=== PATIENT | male | born 1950 | race Two or more races ===

== ENCOUNTER 2016-07-24 08:57 | Inpatient (IN) | payer MEDICAID ==
[2016-07-24] MEDS ORDERED: ONDANSETRON HCL INJ/PF 4 MG/2 ML SDV IV ONE (09:50)
--- NOTE | 2016-07-24 10:06 | ER Document Report ---
[id number] Mode of Arrival: Medic Information source: Patient Notes: 66-year-old male presents with complaints of dizziness nausea vomiting. Patient notes symptoms started couple of hours ago, vomited 2 times. Denies any headache abdominal pain or any other concerns at this time. Patient denies any chest pain shortness breath difficulty breathing TRAVEL OUTSIDE OF THE [place] IN LAST 30 DAYS: No - HPI Onset: Just prior to arrival Onset/Duration: Sudden Quality of pain: No pain Severity: Mild Pain Level: Denies Associated symptoms: Nausea, Vomiting, Other Exacerbated by: Denies Relieved by: Denies Similar symptoms previously: No Recently seen / treated by doctor: No - Related Data Allergies/Adverse Reactions: No Known Allergies Allergy (Verified 05/01/15 16:02) Home Medications: Current Home Medications Dutasteride [Avodart] 0.5 mg PO DAILY 07/24/16 [History] Metoprolol Succinate [Toprol Xl 50 mg Tab.sr] 50 mg PO DAILY 07/24/16 [History] Simvastatin [Zocor 40 mg Tablet] 40 mg PO DAILY 07/24/16 [History] Tamsulosin HCl [Flomax] 0.8 mg PO DAILY 07/24/16 [History] Warfarin Sodium [Coumadin 2.5 mg Tablet] 2.5 mg PO MOWEFR@1000 07/24/16 [History ] Warfarin Sodium [Coumadin 3 mg Tablet] 3 mg PO TUTHSA@1000 07/24/16 [History] Past Medical History - Social History Smoking Status: Never Smoker Cigarette use (# per day): No Chew tobacco use (# tins/day): No Smoking Education Provided: No Family History: Reviewed & Not Pertinent, Other - Past Medical History Cardiac Medical History: Reports: Hx Atrial Fibrillation, Hx Hypercholesterolemia, Hx Hypertension Neurological Medical History: Reports: Hx Cerebrovascular Accident Renal/ Medical History: Reports: Hx Benign Prostatic Hyperplasia Surgical Hx: Negative - Immunizations Hx Diphtheria, Pertussis, Tetanus Vaccination: No Review of Systems - Review of Systems Notes: REVIEW OF SYSTEMS: CONSTITUTIONAL : Denies fever, chills, or sweats. Denies recent illness. EENT: Denies eye, ear, throat, or mouth pain or symptoms. Denies nasal or sinus congestion or discharge. Denies throat, tongue, or mouth swelling or difficulty swallowing. CARDIOVASCULAR: Denies chest pain. Denies palpitations or racing or irregular heart beat. Denies ankle edema. RESPIRATORY: Denies cough, cold, or chest congestion. Denies shortness of breath, difficulty breathing, or wheezing. GASTROINTESTINAL: admits to nausea vomiting GENITOURINARY: Denies difficulty urinating, painful urination, burning, frequency, blood in urine, or discharge. MUSCULOSKELETAL: Denies back or neck pain or stiffness. Denies joint pain or swelling. SKIN: Denies rash, lesions or sores. HEMATOLOGIC : Denies easy bruising or bleeding. LYMPHATIC: Denies swollen, enlarged glands. NEUROLOGICAL: Denies confusion or altered mental status. Denies passing out or loss of consciousness. Denies dizziness or lightheadedness. Denies headache. Denies weakness or paralysis or loss of use of either side. Denies problems with gait or speech. Denies sensory loss, numbness, or tingling. Denies seizures. PSYCHIATRIC: Denies anxiety or stress. Denies depression, suicidal ideation, or homicidal ideation. ALL OTHER SYSTEMS REVIEWED AND NEGATIVE. Dictation was performed using [employer] voice recognition software PHYSICAL EXAMINATION: GENERAL: Well-appearing, well-nourished and in no acute distress. HEAD: Atraumatic, normocephalic. EYES: Pupils equal round and reactive to light, extraocular movements intact, sclera anicteric, conjunctiva are normal. ENT: Nares patent, oropharynx clear without exudates. Moist mucous membranes. NECK: Normal range of motion, supple without lymphadenopathy LUNGS: Breath sounds clear to auscultation bilaterally and equal. No wheezes rales or rhonchi. HEART: irregular rate and rythma ABDOMEN: Soft, nontender, nondistended abdomen. No guarding, no rebound. No masses appreciated. Musculoskeletal: Normal range of motion, no pitting or edema. No cyanosis. NEUROLOGICAL: Cranial nerves grossly intact. Normal speech, normal gait. Normal sensory, motor exams patient states that this is [place] but notes that he is in the hospital PSYCH: Normal mood, normal affect. SKIN: Warm, Dry, normal turgor, no rashes or lesions noted. Physical Exam - Vital signs Vitals: Resp 28 H 07/24/16 09:38 Course - Re-evaluation Re-evalutation: 07/24/16 10:06 Patient will be sent for CT head and immediately 07/24/16 16:18 ct head notes previous cva, cta chest was negative, pt does become hypoxic intermittently, will admit for confusion. - Vital Signs Vital signs: Temp Pulse Resp BP Pulse Ox 97.8 F 23 H 130/84 H 94 07/24/16 15:01 07/24/16 15:01 07/24/16 15:01 07/24/16 15:01 - Laboratory Result Diagrams: 07/24/16 10:57 07/24/16 10:57 Laboratory results interpreted by me: 07/24/16 07/24/16 07/24/16 10:57 10:57 10:57 WBC 12.5 H RBC 5.96 H Hgb 17.8 H Hct 53.4 H Seg Neutrophils % 84.7 H Lymphocytes % 8.9 L Absolute Neutrophils 10.6 H PT 23.7 H Sodium 146.3 H Carbon Dioxide 32 H Glucose 113 H Urine Protein Urine Ketones Urine Ascorbic Acid 07/24/16 13:15 WBC RBC Hgb Hct Seg Neutrophils % Lymphocytes % Absolute Neutrophils PT Sodium Carbon Dioxide Glucose Urine Protein 100 H Urine Ketones TRACE H Urine Ascorbic Acid 20 H - Diagnostic Test Radiology reviewed: Image reviewed, Reports reviewed - EKG Interpretation by Me EKG shows normal: Sinus rhythm, [place], Intervals, QRS Complexes When compared to previous EKG there are: Changes noted - Patient noted to have inverted T waves in lead aVL V4 which appear to be new, he does have inverted T waves in 135 and V6 as well which appears to be chronic Discharge - Discharge Clinical Impression: Hypoxemia Altered mental status Qualifiers: Altered mental status type: unspecified Qualified Code(s): R41.82 - Altered mental status, unspecified Condition: Stable Disposition: ADMITTED OBSERVATION Admitting Provider: Hospitalist Unit Admitted: [facility]
--- NOTE | 2016-07-24 11:06 | EKG REPORT ---
SEVERITY:- ABNORMAL ECG - ATRIAL FIBRILLATION, V-RATE 84-114 REPOL ABNRM SUGGESTS ISCHEMIA, DIFFUSE LEADS BORDERLINE PROLONGED QT INTERVAL : Confirmed by: Roselyn Collier 24-Jul-2016 11:06:31
[2016-07-24 11:08] LABS: ABSOLUTE BASOPHILS # (AUTO) 0.1 10^3/uL (0.0-0.2); ABSOLUTE LYMPHOCYTES (AUTO) 1.1 10^3/uL (0.5-4.7); ABSOLUTE MONOCYTES (AUTO) 0.7 10^3/uL (0.1-1.4); ABSOLUTE NEUT (AUTO) 10.6 10^3/uL (1.7-8.2); BASOPHILS % (AUTO) 0.7 % (0-2); EOSINOPHILS % (AUTO) 0.1 % (0-6); HEMATOCRIT 53.4 % (37.9-51.0); HEMOGLOBIN 17.8 g/dL (13.5-17.0); LYMPHOCYTES % (AUTO) 8.9 % (13-45); MEAN CORPUSCULAR HEMOGLOBIN 29.8 pg (27.0-33.4); MEAN CORPUSCULAR HGB CONC 33.3 g/dL (32.0-36.0); MEAN CORPUSCULAR VOLUME 90 fl (80-97); MONOCYTES % (AUTO) 5.6 % (3-13); RED BLOOD COUNT 5.96 10^6/uL (4.35-5.55); RED CELL DISTRIBUTION WIDTH 13.9 % (11.5-14.0); SEGMENTED NEUTROPHILS % (AUTO) 84.7 % (42-78); WHITE BLOOD COUNT 12.5 10^3/uL (4.0-10.5)
[2016-07-24 11:22] LABS: PROTHROMBIN TIME 23.7 SEC (11.4-15.4)
[2016-07-24 11:30] LABS: ALANINE AMINOTRANSFERASE 64 U/L (21-72); ALBUMIN 4.3 g/dL (3.5-5.0); ALKALINE PHOSPHATASE 96 U/L (38-126); ANION GAP 10 (5-19); ASPARTATE AMINO TRANSFERASE 44 U/L (17-59); BILIRUBIN,TOTAL 0.8 mg/dL (0.2-1.3); BLOOD UREA NITROGEN 14 mg/dL (7-20); CARBON DIOXIDE 32 mmol/L (22-30); CHLORIDE 104 mmol/L (98-107); CREATINE KINASE 56 U/L (55-170); CREATININE RESULT 0.68 mg/dL (0.52-1.25); GLUCOSE 113 mg/dL (75-110); POTASSIUM 4.5 mmol/L (3.6-5.0); SODIUM 146.3 mmol/L (137-145); TOTAL PROTEIN 8.2 g/dL (6.3-8.2)
[2016-07-24 11:37] LABS: CREATINE KINASE MB 2.12 ng/mL (<4.55)
[2016-07-24 11:39] LABS: TROPONIN I < 0.012 ng/mL
[2016-07-24 14:20] LABS: APPEARANCE,URINE CLEAR; BILIRUBIN,URINE NEGATIVE (NEGATIVE); GLUCOSE, URINE NEGATIVE (NEGATIVE); KETONES,URINE TRACE mg/dL (NEGATIVE); LEUKOCYTE ESTERASE,URINE NEGATIVE (NEGATIVE); NITRITE,URINE NEGATIVE (NEGATIVE); PROTEIN,URINE 100 mg/dL (NEGATIVE); URINE SPECIFIC GRAVITY 1.046; UROBILINOGEN,URINE NEGATIVE mg/dL (<2.0)
[2016-07-24] MEDS ORDERED: ALBUTEROL SULFATE 0.083% NEB 2.5 MG/3 ML AMPUL NEB PRN (14:23)
[2016-07-24 14:45] LABS: URINE BARBITURATES SCREEN NEGATIVE; URINE METHADONE SCREEN NEGATIVE; URINE OPIATES LOW NEGATIVE; URINE PHENCYCLIDINE SCREEN NEGATIVE
[2016-07-24] MEDS ORDERED: ACETAMINOPHEN 325 MG TABLET PO PRN (14:46)
[2016-07-24] MEDS ORDERED: MAGNESIUM HYDROXIDE SUSP 30 ML UDCUP PO PRN (14:46)
[2016-07-24] MEDS ORDERED: ONDANSETRON HCL INJ/PF 4 MG/2 ML SDV IV PRN (14:46)
[2016-07-24] MEDS ORDERED: NORMAL SALINE 1000 ML 1,000 ML IV ONE (16:15)
[2016-07-24] MEDS ORDERED: AZITHROMYCIN 250 MG TABLET PO ONE (16:30)
[2016-07-24] MEDS ORDERED: METOPROLOL SUCCINATE 50 MG TAB.SR.24H PO ONE (16:30)
[2016-07-24] MEDS ORDERED: INFLUENZA ADLT QUAD (36MOS+) 2016-17 VAC 0.5 ML SYR IM PRN (16:33)
[2016-07-24] MEDS: CEFTRIAXONE 1 GM/D5W RTU 1 GM/50 ML RTUPB IV SCH (18:18)
[2016-07-24] MEDS: TAMSULOSIN HCL 0.4 MG CAP.SR.24H PO SCH (18:20)
--- NOTE | 2016-07-24 20:08 | PDOC H&P ---
History of Present Illness Admission Date/PCP: 07/24/16 14:23 History of Present Illness: JUAN MANCIA is a 66 year old male with a past medical history of multiple CVAs, A. fib, hypertension, BPH who presents to the emergency department with dizziness and nausea vomiting. 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 Over the past several days patient has had upper respiratory symptoms including headache, rhinorrhea, cough productive of whitish phlegm and some shortness of breath. Today patient had lightheadedness accompanied by nausea and vomiting while attempting to change positions. Patient had no length which difficulties at that time, difficulty seeing, paresthesias, or weakness more than normal. Patient had emesis 2. He reports he's been having normal bowel movements without hematochezia or melena and without diarrhea or constipation. Patient was found in the emergency department to be 2 And with an oxygen saturation in the 80s. CTA was obtained which reveals atelectasis and no PE. Patient is referred to the hospitalist service for SIRS. Past Medical History Cardiac Medical History: Reports: Atrial Fibrillation, Hyperlipidema, Hypertension Past Surgical History Past Surgical History: Reports: None Social History Smoking Status: Former Smoker - Quit 20 years ago Frequency of Alcohol Use: None Amount of Alcoholic Beverages Per Day: quit approximately 8 years ago after stroke, previous history of drinking Hx Recreational Drug Use: No Hx Prescription Drug Abuse: No - Advance Directive Resuscitation Status: Do Not Resuscitate Surrogate healthcare decision maker:: Daughter, Swetha Dailey Family History Family History: None, Other - Unknown mother and father history Parental Family History Reviewed: No - unknown Children Family History Reviewed: Yes Sibling(s) Family History Reviewed.: Yes Medication/Allergy Home Medications: Dutasteride [Avodart] 0.5 mg PO DAILY 07/24/16 Metoprolol Succinate [Toprol Xl 50 mg Tab.sr] 50 mg PO DAILY 07/24/16 Simvastatin [Zocor 40 mg Tablet] 40 mg PO DAILY 07/24/16 Tamsulosin HCl [Flomax] 0.8 mg PO DAILY 07/24/16 Warfarin Sodium [Coumadin 2.5 mg Tablet] 2.5 mg PO MOWEFR@1000 07/24/16 Warfarin Sodium [Coumadin 3 mg Tablet] 3 mg PO TUTHSA@1000 07/24/16 Allergies/Adverse Reactions: No Known Allergies Allergy (Verified 05/01/15 16:02) Review of Systems Constitutional: ABSENT: anorexia, chills, fever(s), headache(s), weakness, weight gain, weight loss Eyes: ABSENT: visual disturbances Ears: ABSENT: hearing changes Nose, Mouth, and Throat: PRESENT: headache(s). ABSENT: sore throat, vertigo Cardiovascular: PRESENT: palpitations. ABSENT: chest pain, dyspnea on exertion , edema, orthropnea Respiratory: PRESENT: cough, dyspnea, sputum. ABSENT: hemoptysis Gastrointestinal: ABSENT: abdominal pain, constipation, diarrhea, dysphagia, heartburn, hematemesis, hematochezia, melena, nausea, vomiting Genitourinary: PRESENT: difficulty urinating, nocturia. ABSENT: dysuria, hematuria Musculoskeletal: ABSENT: joint swelling Integumentary: ABSENT: rash, wounds Neurological: PRESENT: dizziness, lack of coordination - Residual from previous CVA, weakness - Chronic left-sided weakness. ABSENT: abnormal gait, abnormal movements, abnormal speech, confusion, focal weakness, syncope Psychiatric: ABSENT: anxiety, depression, homidical ideation, suicidal ideation Endocrine: ABSENT: cold intolerance, heat intolerance, polydipsia, polyuria Hematologic/Lymphatic: ABSENT: easy bleeding, easy bruising Physical Exam Vital Signs: Temp Pulse Resp BP Pulse Ox 98.1 F 88 20 138/83 H 93 07/24/16 18:02 07/24/16 18:02 07/24/16 18:02 07/24/16 18:02 07/24/16 18:02 Intake & Output 07/23/16 07/24/16 07/25/16 06:59 06:59 06:59 Intake Total 550 Balance 550 Weight 87.4 kg General appearance: PRESENT: no acute distress, well-developed, well-nourished Head exam: PRESENT: atraumatic, normocephalic Eye exam: PRESENT: conjunctiva pink, EOMI, PERRLA. ABSENT: conjunctival injection, scleral icterus Ear exam: PRESENT: normal external ear exam, other - Cerumen impacted TMs bilaterally Mouth exam: PRESENT: dry mucosa, neck supple, tongue midline Throat exam: PRESENT: post pharyngeal erythema Neck exam: PRESENT: lymphadenopathy - Anterior cervical adenopathy. ABSENT: JVD , tenderness, thyromegaly, tracheal deviation Respiratory exam: PRESENT: symmetrical, unlabored. ABSENT: accessory muscle use , clear to auscultation stew - Diminished right lower lobe, rales, retraction, rhonchi, tachypnea, wheezes Cardiovascular exam: PRESENT: irregular rhythm, +S1, +S2. ABSENT: diastolic murmur, gallop, rubs, systolic murmur Pulses: PRESENT: normal dorsalis pedis pul Vascular exam: PRESENT: normal capillary refill GI/Abdominal exam: PRESENT: normal bowel sounds, soft. ABSENT: distended, firm , guarding, mass, Celestin's sign, organolmegaly, rebound, rigid, tenderness Rectal exam: PRESENT: deferred Extremities exam: PRESENT: full ROM. ABSENT: calf tenderness, clubbing, pedal edema Musculoskeletal exam: ABSENT: ambulatory - Chronically bedbound Neurological exam: PRESENT: alert, awake, oriented to person, oriented to place , oriented to time, oriented to situation. ABSENT: CN II-XII grossly intact - Left facial droop, right-sided weaknessboth chronic, motor sensory deficit Psychiatric exam: PRESENT: appropriate affect, normal mood. ABSENT: homicidal ideation, suicidal ideation Skin exam: PRESENT: dry, intact, warm. ABSENT: cyanosis, rash Results Laboratory Results: 07/24/16 16:25 Troponin I < 0.012 Impressions: Head CT 07/24/16 10:02 IMPRESSION: 1. No evidence of acute event. If there is clinical suspicion of acute infarction then MRI could be performed. 2. Multiple old infarcts on the right. 3. Mucosal thickening in the right maxillary and sphenoid sinuses Chest/Abdomen CTA 07/24/16 10:37 IMPRESSION: Right basilar atelectasis. No pulmonary emboli. Assessment & Plan - Diagnosis (1) SIRS (systemic inflammatory response syndrome) Is this a current diagnosis for this admission?: YesPlan: Likely secondary to pneumonia. No radiographic evidence of pneumonia, but clinical picture appears to fit and believe that this will bless him on chest x- ray after rehydration. (2) Pneumonia Qualifiers: Pneumonia type: due to unspecified organism Laterality: unspecified laterality Lung location: unspecified part of lung Qualified Code(s) : J18.9 - Pneumonia, unspecified organism Is this a current diagnosis for this admission?: YesPlan: Likely secondary to community-acquired pneumonia. No radiographic evidence of pneumonia, but clinical picture appears to fit and believe that this will blossomon chest x-ray after rehydration. Initiated patient on Rocephin and azithromycin, scheduled nebulized treatments and pulmonary toileting. (3) A-fib Qualifiers: Atrial fibrillation type: persistent Qualified Code(s): I48.1 - Persistent atrial fibrillation Is this a current diagnosis for this admission?: YesPlan: Currently rate controlled. Patient on Coumadin and metoprolol (4) Hypertension Qualifiers: Hypertension type: essential hypertension Qualified Code(s): I10 - Essential (primary) hypertension Is this a current diagnosis for this admission?: YesPlan: Continue metoprolol (5) BPH (benign prostatic hypertrophy) Qualifiers: Prostatic enlargement morphology: unspecified morphology Lower urinary tract symptom presence: symptoms present Qualified Code(s): N40.1 - Benign prostatic hyperplasia with lower urinary tract symptoms Is this a current diagnosis for this admission?: YesPlan: Patient on Avodart and max dose of Flomax. Patient may require in and out catheterization. (6) Dehydration Is this a current diagnosis for this admission?: YesPlan: Patient is quite profoundly dehydrated. I believe this is likely secondary to poor oral intake due to not wanting to urinate too frequently. Will give 1 L normal saline bolus and run fluids briskly. Monitor for acute volume overload. (7) Cerebral arteriosclerosis with history of previous cerebrovascular accident Is this a current diagnosis for this admission?: Yes - Time Time Spent with patient: 125 minutes were spent with this patient and his family Time Spent: Greater than 70 Minutes Medications reviewed and adjusted accordingly: Yes Anticipated discharge: Home with Homehealth Within: within 48 hours - Inpatient Certification Based on my medical assessment, after consideration of the patient's comorbidities, presenting symptoms, or acuity I expect that the services needed warrant INPATIENT care.: Yes I certify that my determination is in accordance with my understanding of Medicare's requirements for reasonable and necessary INPATIENT services [42 CFR 412.3e].: Yes Medical Necessity: Need For IV Fluids, Need for Nebulizer Therapy and Monitoring of Response Post Hospital Care: 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
[2016-07-24] MEDS: SIMVASTATIN 40 MG TABLET PO SCH (21:55)
[2016-07-24] MEDS: NORMAL SALINE 1000 ML 1,000 ML IV PRN (21:56)
[2016-07-24] MEDS ORDERED: WARFARIN SODIUM 2.5 MG TABLET PO SCH (22:00)
[2016-07-25 03:26] LABS: ABSOLUTE BASOPHILS # (AUTO) 0.1 10^3/uL (0.0-0.2); ABSOLUTE LYMPHOCYTES (AUTO) 1.7 10^3/uL (0.5-4.7); ABSOLUTE MONOCYTES (AUTO) 0.8 10^3/uL (0.1-1.4); BASOPHILS % (AUTO) 0.4 % (0-2); EOSINOPHILS % (AUTO) 0.3 % (0-6); HEMATOCRIT 45.8 % (37.9-51.0); HGB HCT DIFFERENCE 0.1; LYMPHOCYTES % (AUTO) 14.8 % (13-45); MEAN CORPUSCULAR HEMOGLOBIN 29.8 pg (27.0-33.4); MEAN CORPUSCULAR HGB CONC 33.4 g/dL (32.0-36.0); MEAN CORPUSCULAR VOLUME 89 fl (80-97); MONOCYTES % (AUTO) 6.6 % (3-13); RED BLOOD COUNT 5.14 10^6/uL (4.35-5.55); RED CELL DISTRIBUTION WIDTH 13.8 % (11.5-14.0); SEGMENTED NEUTROPHILS % (AUTO) 77.9 % (42-78); WHITE BLOOD COUNT 11.6 10^3/uL (4.0-10.5)
[2016-07-25 03:42] LABS: HEMOGLOBIN 15.3 g/dL (13.5-17.0)
[2016-07-25 04:03] LABS: PROTHROMBIN TIME 24.2 SEC (11.4-15.4)
[2016-07-25 04:20] LABS: ANION GAP 11 (5-19); BLOOD UREA NITROGEN 13 mg/dL (7-20); CALCIUM 8.3 mg/dL (8.4-10.2); CARBON DIOXIDE 25 mmol/L (22-30); CHLORIDE 105 mmol/L (98-107); CHOLESTEROL 133.09 mg/dL (0-200); CREATININE RESULT 0.67 mg/dL (0.52-1.25); Direct HDL 24 mg/dL (>40); GLUCOSE 123 mg/dL (75-110); MAGNESIUM 1.7 mg/dL (1.6-2.3); POTASSIUM 4.1 mmol/L (3.6-5.0); SODIUM 140.7 mmol/L (137-145); TRIGLYCERIDES 79 mg/dL (<150)
[2016-07-25 04:34] LABS: DIRECT LDL 100 mg/dL (<100)
[2016-07-25] MEDS ORDERED: NORMAL SALINE 1000 ML 2,000 ML IV ONE (08:30)
[2016-07-25] MEDS: AZITHROMYCIN 250 MG TABLET PO SCH (09:25)
[2016-07-25] MEDS: OMEGA-3 ACID ETHYL ESTERS 1 GM CAPSULE PO SCH (09:25)
[2016-07-25] MEDS: METOPROLOL SUCCINATE 50 MG TAB.SR.24H PO SCH (09:25)
[2016-07-25 09:34] LABS: APPEARANCE,URINE TURBID; BILIRUBIN,URINE NEGATIVE (NEGATIVE); GLUCOSE, URINE NEGATIVE (NEGATIVE); KETONES,URINE TRACE mg/dL (NEGATIVE); LEUKOCYTE ESTERASE,URINE NEGATIVE (NEGATIVE); NITRITE,URINE NEGATIVE (NEGATIVE); PROTEIN,URINE 30 mg/dL (NEGATIVE); UROBILINOGEN,URINE NEGATIVE mg/dL (<2.0)
[2016-07-25] MEDS ORDERED: POLYETHYLENE GLYCOL 3350 POWDER 17 GM/1 PACKET PO ONE (12:30)
[2016-07-25] MEDS: CEFTRIAXONE 1 GM/D5W RTU 1 GM/50 ML RTUPB IV SCH (18:28)
[2016-07-25] MEDS: TAMSULOSIN HCL 0.4 MG CAP.SR.24H PO SCH (18:28)
[2016-07-25] MEDS: DOCUSATE SODIUM 100 MG CAPSULE PO SCH (18:28)
[2016-07-25] MEDS: SIMVASTATIN 40 MG TABLET PO SCH (22:00)
[2016-07-25] MEDS ORDERED: WARFARIN SODIUM 3 MG TABLET PO SCH (22:00)
[2016-07-25] MEDS: NORMAL SALINE 1000 ML 1,000 ML IV PRN (22:01)
[2016-07-26 05:15] LABS: ABSOLUTE BASOPHILS # (AUTO) 0.1 10^3/uL (0.0-0.2); ABSOLUTE EOSINOPHILS # (AUTO) 0.1 10^3/uL (0.0-0.6); ABSOLUTE LYMPHOCYTES (AUTO) 2.7 10^3/uL (0.5-4.7); ABSOLUTE MONOCYTES (AUTO) 0.7 10^3/uL (0.1-1.4); ABSOLUTE NEUT (AUTO) 6.1 10^3/uL (1.7-8.2); BASOPHILS % (AUTO) 0.8 % (0-2); EOSINOPHILS % (AUTO) 0.8 % (0-6); HEMATOCRIT 46.7 % (37.9-51.0); HEMOGLOBIN 15.7 g/dL (13.5-17.0); HGB HCT DIFFERENCE 0.4; LYMPHOCYTES % (AUTO) 27.8 % (13-45); MEAN CORPUSCULAR HEMOGLOBIN 30.1 pg (27.0-33.4); MEAN CORPUSCULAR HGB CONC 33.6 g/dL (32.0-36.0); MEAN CORPUSCULAR VOLUME 90 fl (80-97); MONOCYTES % (AUTO) 7.6 % (3-13); RED BLOOD COUNT 5.21 10^6/uL (4.35-5.55); RED CELL DISTRIBUTION WIDTH 14.2 % (11.5-14.0); WHITE BLOOD COUNT 9.7 10^3/uL (4.0-10.5)
[2016-07-26 05:44] LABS: ANION GAP 8 (5-19); BLOOD UREA NITROGEN 17 mg/dL (7-20); CALCIUM 8.4 mg/dL (8.4-10.2); CARBON DIOXIDE 27 mmol/L (22-30); CHLORIDE 107 mmol/L (98-107); CREATININE RESULT 0.63 mg/dL (0.52-1.25); GLUCOSE 101 mg/dL (75-110); POTASSIUM 4.1 mmol/L (3.6-5.0); SODIUM 141.8 mmol/L (137-145)
[2016-07-26] MEDS: DOCUSATE SODIUM 100 MG CAPSULE PO SCH (08:41)
[2016-07-26] MEDS: METOPROLOL SUCCINATE 50 MG TAB.SR.24H PO SCH (08:41)
[2016-07-26] MEDS: OMEGA-3 ACID ETHYL ESTERS 1 GM CAPSULE PO SCH (08:41)
[2016-07-26] MEDS: AZITHROMYCIN 250 MG TABLET PO SCH (08:42)
[2016-07-26] MEDS ORDERED: POLYETHYLENE GLYCOL 3350 POWDER 17 GM/1 PACKET PO SCH (10:00)
[2016-07-26 14:25] VITALS: BP 138/83
--- NOTE | 2016-07-26 17:10 | PDOC PROGRESS REPORT ---
Subjective Progress Note for:: 07/25/16 Subjective:: Patient still has some lightheadedness. Patient denies chest pain, shortness of breath, abdominal pain, nausea, vomiting, fevers, chills, diarrhea, constipation , headache, new onset weakness. Physical Exam Vital Signs: Temp Pulse Resp BP Pulse Ox 98.6 F 78 20 93/60 L 92 07/25/16 04:59 07/25/16 04:59 07/25/16 04:59 07/25/16 04:59 07/25/16 04:59 Intake & Output 07/24/16 07/25/16 07/26/16 06:59 06:59 06:59 Intake Total 2045 Output Total 50 Balance 1995 Weight 88 kg Exam: General: no acute respiratory distress HEENT: AT/NC, PERRL, EOMI, oropharynx is moist, pink, no scleral icterus, no conjunctival injection Neck: No JVD, trachea midline Chest: Clear to auscultation bilaterally, no wheezes rhonchi or rales CV:IRR Abdomen: Soft, nontender to palpation, nondistended, active bowel sounds; no rebound, rigidity, or guarding Extremities: No cyanosis, clubbing or edema Results Laboratory Results: 07/25/16 03:15 07/25/16 03:15 07/25/16 07/25/16 03:15 03:15 WBC 11.6 H RBC 5.14 Hgb 15.3 D Hct 45.8 MCV 89 MCH 29.8 MCHC 33.4 RDW 13.8 Plt Count 194 Seg Neutrophils % 77.9 Lymphocytes % 14.8 Monocytes % 6.6 Eosinophils % 0.3 Basophils % 0.4 Absolute Neutrophils 9.0 H Absolute Lymphocytes 1.7 Absolute Monocytes 0.8 Absolute Eosinophils 0.0 Absolute Basophils 0.1 Sodium 140.7 Potassium 4.1 Chloride 105 Carbon Dioxide 25 Anion Gap 11 BUN 13 Creatinine 0.67 Est GFR ( Amer) > 60 Est GFR (Non-Af Amer) > 60 Glucose 123 H Calcium 8.3 L Magnesium 1.7 Triglycerides 79 Cholesterol 133.09 LDL Cholesterol Direct 100 VLDL Cholesterol 16.0 HDL Cholesterol 24 L 07/24/16 07/24/16 07/25/16 16:25 20:55 03:15 Troponin I < 0.012 < 0.012 < 0.012 Impressions: Head CT 07/24/16 10:02 IMPRESSION: 1. No evidence of acute event. If there is clinical suspicion of acute infarction then MRI could be performed. 2. Multiple old infarcts on the right. 3. Mucosal thickening in the right maxillary and sphenoid sinuses Chest/Abdomen CTA 07/24/16 10:37 IMPRESSION: Right basilar atelectasis. No pulmonary emboli. Assessment & Plan - Diagnosis (1) SIRS (systemic inflammatory response syndrome) Is this a current diagnosis for this admission?: YesPlan: Repeat UA today reveals that this is probably likely secondary to a urinary tract infection. Will send culture. (2) A-fib Qualifiers: Atrial fibrillation type: persistent Qualified Code(s): I48.1 - Persistent atrial fibrillation Is this a current diagnosis for this admission?: YesPlan: Currently rate controlled. Patient on Coumadin and metoprolol (3) Hypertension Qualifiers: Hypertension type: essential hypertension Qualified Code(s): I10 - Essential (primary) hypertension Is this a current diagnosis for this admission?: YesPlan: Continue metoprolol (4) BPH (benign prostatic hypertrophy) Qualifiers: Prostatic enlargement morphology: unspecified morphology Lower urinary tract symptom presence: symptoms present Qualified Code(s): N40.1 - Benign prostatic hyperplasia with lower urinary tract symptoms Is this a current diagnosis for this admission?: YesPlan: Patient on Avodart and max dose of Flomax. Patient may require in and out catheterization. (5) Dehydration Is this a current diagnosis for this admission?: YesPlan: Will rebolus patient and continue to run IV fluids. He is quite dehydrated. (6) Cerebral arteriosclerosis with history of previous cerebrovascular accident Is this a current diagnosis for this admission?: Yes - Time Time Spent with patient: 25-34 minutes Medications reviewed and adjusted accordingly: Yes
--- NOTE | 2016-07-26 17:47 | PDOC DISCHARGE SUMMARY ---
General - Admit/Disc Date/PCP Admission Date/Primary Care Provider: 07/24/16 14:23 Discharge Date: 07/26/16 - Discharge Diagnosis (1) Dehydration Is this a current diagnosis for this admission?: Yes (2) UTI (urinary tract infection) Is this a current diagnosis for this admission?: Yes (3) SIRS (systemic inflammatory response syndrome) Is this a current diagnosis for this admission?: Yes (4) A-fib Is this a current diagnosis for this admission?: Yes (5) Hypertension Is this a current diagnosis for this admission?: Yes (6) BPH (benign prostatic hypertrophy) Is this a current diagnosis for this admission?: Yes (7) Cerebral arteriosclerosis with history of previous cerebrovascular accident Is this a current diagnosis for this admission?: Yes - Additional Information Resuscitation Status: Do Not Resuscitate Discharge Diet: Cardiac Discharge Activity: Activity As Tolerated Home Medications: Dutasteride [Avodart] 0.5 mg PO DAILY 07/24/16 Metoprolol Succinate [Toprol Xl 50 mg Tab.sr] 50 mg PO DAILY 07/24/16 Simvastatin [Zocor 40 mg Tablet] 40 mg PO DAILY 07/24/16 Tamsulosin HCl [Flomax] 0.8 mg PO DAILY 07/24/16 Warfarin Sodium [Coumadin 2.5 mg Tablet] 2.5 mg PO MOWEFR@1000 07/24/16 Warfarin Sodium [Coumadin 3 mg Tablet] 3 mg PO TUTHSA@1000 07/24/16 Ciprofloxacin HCl [Cipro 250 mg Tablet] 1 tab PO BID #4 tab 07/26/16 Docusate Sodium [Colace 100 mg Capsule] 100 mg PO BID #60 capsule 07/26/16 History of Present Illness History of Present Illness: JUAN MANCIA is a 66 year old male with a past medical history of multiple CVAs, A. fib, hypertension, BPH who presents to the emergency department with dizziness and nausea vomiting. 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 Over the past several days patient has had upper respiratory symptoms including headache, rhinorrhea, cough productive of whitish phlegm and some shortness of breath. Today patient had lightheadedness accompanied by nausea and vomiting while attempting to change positions. Patient had no length which difficulties at that time, difficulty seeing, paresthesias, or weakness more than normal. Patient had emesis 2. He reports he's been having normal bowel movements without hematochezia or melena and without diarrhea or constipation. Patient was found in the emergency department to be 2 And with an oxygen saturation in the 80s. CTA was obtained which reveals atelectasis and no PE. Patient is referred to the hospitalist service for SIRS. Hospital Course Hospital Course: Patient was aggressively rehydrated. He was found to be profoundly dehydrated. His dizziness improved with this. Repeat UA of patient revealed good possibly be an infection. Patient had been started on Rocephin however and culture remained negative. Patient was treated for 3 days with IV Rocephin and then given 2 additional days of Cipro for a full 5 days of treatment. Patient was evaluated by physical therapy and other than being off balance patient has exceptional strength in spite of having had several strokes. At this time, would recommend his primary care physician to initiate patient on physical therapy for improved balance. Patient is currently stable and doing well on ready for discharge. With no new complaints Physical Exam Vital Signs: Temp Pulse Resp BP Pulse Ox 97.7 F 93 16 141/80 H 95 07/26/16 11:42 07/26/16 11:54 07/26/16 11:54 07/26/16 11:42 07/26/16 11:54 Intake & Output 07/25/16 07/26/16 07/27/16 06:59 06:59 06:59 Intake Total 2046 886 350 Output Total 50 200 Balance 1995 886 150 Weight 88 kg 91 kg Exam: General: no acute respiratory distress HEENT: AT/NC, PERRL, EOMI, oropharynx is moist, pink, no scleral icterus, no conjunctival injection Neck: No JVD, trachea midline Chest: Clear to auscultation bilaterally, no wheezes rhonchi or rales CV:IRR Abdomen: Soft, nontender to palpation, nondistended, active bowel sounds; no rebound, rigidity, or guarding Extremities: No cyanosis, clubbing or edema Results Laboratory Results: 07/26/16 04:43 07/26/16 04:43 07/26/16 07/26/16 04:43 04:43 WBC 9.7 RBC 5.21 Hgb 15.7 Hct 46.7 MCV 90 MCH 30.1 MCHC 33.6 RDW 14.2 H Plt Count 178 Seg Neutrophils % 63.0 Lymphocytes % 27.8 Monocytes % 7.6 Eosinophils % 0.8 Basophils % 0.8 Absolute Neutrophils 6.1 Absolute Lymphocytes 2.7 Absolute Monocytes 0.7 Absolute Eosinophils 0.1 Absolute Basophils 0.1 Sodium 141.8 Potassium 4.1 Chloride 107 Carbon Dioxide 27 Anion Gap 8 BUN 17 Creatinine 0.63 Est GFR ( Amer) > 60 Est GFR (Non-Af Amer) > 60 Glucose 101 Calcium 8.4 07/24/16 07/24/16 07/25/16 16:25 20:55 03:15 Troponin I < 0.012 < 0.012 < 0.012 Impressions: Head CT 07/24/16 10:02 IMPRESSION: 1. No evidence of acute event. If there is clinical suspicion of acute infarction then MRI could be performed. 2. Multiple old infarcts on the right. 3. Mucosal thickening in the right maxillary and sphenoid sinuses Chest/Abdomen CTA 07/24/16 10:37 IMPRESSION: Right basilar atelectasis. No pulmonary emboli. Qualifiers PATEINT BEING DISCHARGED WITH ANY OF THE FOLLOWING DIAGNOSIS?: No Plan Time Spent: Less than 30 Minutes
== END 2016-07-26 15:40 | disposition home or self-care (01) | DRG 690 ==
LOC: ER 08:57 → EH 14:23 → UNDOADMIN 14:43 → EH 14:43 → 3S 17:00
PROVIDERS: ADMIT Family Medicine; ATTEND Family Medicine
PROC: 3E0F73Z Introduction of Anti-inflammatory into Respiratory Tract, Via Natural or Artificial Opening (ICD-10-PCS; principal; 2016-07-24)
DX: N39.0 Urinary tract infection, site not specified (principal); I69.354 Hemiplegia and hemiparesis following cerebral infarction affecting left non-dominant side; E86.0 Dehydration; I48.0 Paroxysmal atrial fibrillation; R55 Syncope and collapse; I10 Essential (primary) hypertension; Z79.01 Long term (current) use of anticoagulants; Z66 Do not resuscitate; Z87.891 Personal history of nicotine dependence
CPT/HCPCS: 36415; 70450; 71275; 80048; 80053; 80061; 80307; 81001; 82550; 82553; 83036; 83735; 84443; 84484; 85025; 85610; 87040; 87086; 93005; 93010; 96374; 99285; J0696; J2405; J3490; J7030

== ENCOUNTER 2016-08-04 12:34 | Emergency (ER) | payer MEDICAID ==
--- NOTE | 2016-08-04 13:45 | ER Document Report ---
ED General - General Stated Complaint: VOMITING Mode of Arrival: Medic Information source: Patient - Information obtained via patient and his daughter , interpreted by Martkaren, Relative - daughter Notes: Patient presents to the emergency department with reports of vomiting today and diarrhea once today. No c/o of cough, denies cp sob. Patient reports he's been sick for approximate 6 days. Patient reports he was at the hospital last week for the same symptoms. He reports he is taking his current medications. Patient history obtained via an Martti for interpretation because patient speaks Citizen Of [place]. Patient reports urinary frequency and pain when he voids. He also reports left-sided flank pain at night. He has one cipro left. He reports he became dizzy when he vomited today. He also reports he has been dizzy twice in the past month. Patient does not ambulate at home, he uses a wheelchair. He reports his daughters are worried about him. TRAVEL OUTSIDE OF THE [place] IN LAST 30 DAYS: No - HPI Onset: Other Onset/Duration: Persistent Quality of pain: No pain Associated symptoms: Diarrhea, Nausea, Vomiting Exacerbated by: Denies Relieved by: Denies Similar symptoms previously: Yes Recently seen / treated by doctor: Yes - Related Data Allergies/Adverse Reactions: No Known Allergies Allergy (Verified 05/01/15 16:02) Past Medical History - General Information source: Patient, Relative - daughter - Social History Smoking Status: Unknown if Ever Smoked Cigarette use (# per day): No Frequency of alcohol use: None Drug Abuse: None Lives with: Family Family History: None, Other - Unknown mother and father history - Past Medical History Cardiac Medical History: Reports: Hx Atrial Fibrillation, Hx Hypercholesterolemia, Hx Hypertension Neurological Medical History: Reports: Hx Cerebrovascular Accident Renal/ Medical History: Reports: Hx Benign Prostatic Hyperplasia Surgical Hx: Negative - Immunizations Hx Diphtheria, Pertussis, Tetanus Vaccination: No Review of Systems - Review of Systems Notes: Review HPI for review of systems., All other systems negative Physical Exam - Vital signs Vitals: Temp Pulse Resp BP Pulse Ox 97.6 F 88 16 129/83 H 95 08/04/16 13:09 08/04/16 13:09 08/04/16 13:09 08/04/16 13:09 08/04/16 13:09 - Notes Notes: PHYSICAL EXAMINATION: GENERAL: Well-appearing and in no acute distress Nontoxic looking HEAD: Atraumatic, normocephalic. EYES: Pupils equal round and reactive to light, extraocular movements intact, sclera anicteric, conjunctiva are normal. ENT: nares patent, oropharynx clear without exudates. Moist mucous membranes. NECK: Normal range of motion, supple without lymphadenopathy LUNGS: CTAB and equal. No wheezes rales or rhonchi. HEART: Regular rate and rhythm without murmurs ABDOMEN: Soft, no tenderness. No guarding, no rebound EXTREMITIES: Normal range of motion, no pitting edema. No cyanosis. NEUROLOGICAL: Cranial nerves grossly intact. Normal sensory/motor exams. no obvious weakness PSYCH: Normal mood, normal affect. answers questions appropriately via LINN SKIN: Warm, Dry, normal turgor, no rashes or lesions noted Course - Re-evaluation Re-evalutation: 08/04/16 16:15 I have consulted the attending provider dr stuart per [facility] guidelines labs pt c/o reviewed, pmh reviewed, agrees with discharge, fu with urologist 08/04/16 17:02 Daughter reports patient does not walk at home due to pmh of cva. He uses a chair. He is very unsteady on his feet. Linn utilized for interpretation Patient reports he's only been dizzy once or twice this month. He is not dizzy now. No vomiting or diarrhea since arrival Patient was given discharge instructions with the help of Linn. Patient was instructed on the importance of follow-up with Dr. Cervantes and urology. He was instructed to continue his medications. Family does have somebody that reads Albanian. - Vital Signs Vital signs: Temp Pulse Resp BP Pulse Ox 98 F 88 26 H 131/83 H 96 08/04/16 17:01 08/04/16 13:09 08/04/16 17:01 08/04/16 17:01 08/04/16 17:01 - Laboratory Result Diagrams: 08/04/16 14:12 08/04/16 14:12 Laboratory results interpreted by me: 08/04/16 08/04/16 08/04/16 14:12 14:12 14:12 RBC 5.68 H Hct 51.1 H PT 28.9 H Carbon Dioxide 31 H Glucose 120 H - EKG Interpretation by Me Rhythm: A.Fib Discharge - Discharge Clinical Impression: Dysuria, Elevated blood pressure reading, Dizziness Vomiting Qualifiers: Vomiting type: unspecified Vomiting Intractability: non-intractable Nausea presence: unspecified Qualified Code(s): R11.10 - Vomiting, unspecified BPH (benign prostatic hypertrophy) Qualifiers: Prostatic enlargement morphology: unspecified morphology Lower urinary tract symptom presence: symptoms present Qualified Code(s): N40.1 - Benign prostatic hyperplasia with lower urinary tract symptoms Condition: Stable Disposition: HOME, SELF-CARE Instructions: Vomiting ([facility]), Dizziness ([facility]) Additional Instructions: *You have been evaluated for vomiting and diarrhea one time, dizziness, hx of BPH *Continue to take medication as prescribed *Change positions slowly *Drink fluids, stay hydrated *Follow up with Dr Witt this week *Follow up with a urologist within one week *Return to ED for worsening condition, changes, needs Forms: Elevated Blood Pressure Referrals: [facility] [Provider Group] - Follow up in 3-5 days
[2016-08-04 14:37] LABS: ABSOLUTE EOSINOPHILS # (AUTO) 0.1 10^3/uL (0.0-0.6); ABSOLUTE LYMPHOCYTES (AUTO) 1.4 10^3/uL (0.5-4.7); ABSOLUTE MONOCYTES (AUTO) 0.8 10^3/uL (0.1-1.4); ABSOLUTE NEUT (AUTO) 6.1 10^3/uL (1.7-8.2); BASOPHILS % (AUTO) 0.4 % (0-2); EOSINOPHILS % (AUTO) 0.7 % (0-6); HEMATOCRIT 51.1 % (37.9-51.0); HGB HCT DIFFERENCE -0.1; LYMPHOCYTES % (AUTO) 16.3 % (13-45); MEAN CORPUSCULAR HEMOGLOBIN 29.8 pg (27.0-33.4); MEAN CORPUSCULAR HGB CONC 33.2 g/dL (32.0-36.0); MEAN CORPUSCULAR VOLUME 90 fl (80-97); MONOCYTES % (AUTO) 9.9 % (3-13); RED BLOOD COUNT 5.68 10^6/uL (4.35-5.55); SEGMENTED NEUTROPHILS % (AUTO) 72.7 % (42-78); WHITE BLOOD COUNT 8.4 10^3/uL (4.0-10.5)
[2016-08-04 14:39] LABS: PROTHROMBIN TIME 28.9 SEC (11.4-15.4)
[2016-08-04 14:49] LABS: ALANINE AMINOTRANSFERASE 64 U/L (21-72); ALBUMIN 3.7 g/dL (3.5-5.0); ALKALINE PHOSPHATASE 80 U/L (38-126); ANION GAP 8 (5-19); ASPARTATE AMINO TRANSFERASE 54 U/L (17-59); BILIRUBIN,TOTAL 0.9 mg/dL (0.2-1.3); BLOOD UREA NITROGEN 11 mg/dL (7-20); CALCIUM 9.2 mg/dL (8.4-10.2); CARBON DIOXIDE 31 mmol/L (22-30); CHLORIDE 102 mmol/L (98-107); CREATINE KINASE 74 U/L (55-170); CREATININE RESULT 0.66 mg/dL (0.52-1.25); GLUCOSE 120 mg/dL (75-110); POTASSIUM 3.8 mmol/L (3.6-5.0); SODIUM 141.3 mmol/L (137-145); TOTAL PROTEIN 7.8 g/dL (6.3-8.2)
[2016-08-04 15:06] LABS: CREATINE KINASE MB 2.38 ng/mL (<4.55)
[2016-08-04 15:07] LABS: TROPONIN I < 0.012 ng/mL
[2016-08-04 15:18] LABS: APPEARANCE,URINE SLIGHTLY-CLOUDY; BILIRUBIN,URINE NEGATIVE (NEGATIVE); GLUCOSE, URINE NEGATIVE (NEGATIVE); KETONES,URINE NEGATIVE (NEGATIVE); LEUKOCYTE ESTERASE,URINE NEGATIVE (NEGATIVE); NITRITE,URINE NEGATIVE (NEGATIVE); PROTEIN,URINE NEGATIVE (NEGATIVE); URINE SPECIFIC GRAVITY 1.011; UROBILINOGEN,URINE NEGATIVE mg/dL (<2.0)
[2016-08-04 17:36] VITALS: BP 131/83
--- NOTE | 2016-08-05 00:05 | EKG REPORT ---
SEVERITY:- ABNORMAL ECG - ATRIAL FIBRILLATION, V-RATE 66-99 REPOL ABNRM SUGGESTS ISCHEMIA, ANT-LAT LEADS : Confirmed by: Roselyn Collier 05-Aug-2016 00:04:23
== END 2016-08-04 17:30 | disposition home or self-care (01) ==
LOC: ER 12:34
DX: R11.2 Nausea with vomiting, unspecified (principal); R42 Dizziness and giddiness; N40.1 Benign prostatic hyperplasia with lower urinary tract symptoms; R35.0 Frequency of micturition; R30.0 Dysuria; R19.7 Diarrhea, unspecified; R10.9 Unspecified abdominal pain; I10 Essential (primary) hypertension; I69.398 Other sequelae of cerebral infarction; R26.81 Unsteadiness on feet; Z99.3 Dependence on wheelchair
CPT/HCPCS: 36415; 80053; 81001; 82550; 82553; 84484; 85025; 85610; 87804; 93005; 93010; 99284

== ENCOUNTER → 2016-09-28 | Outpatient (CLI) | payer MEDICAID | LOC: OD 12:53 | PROVIDERS: ATTEND Nurse Practitioner Acute Care | DX: R05 Cough (principal) | CPT/HCPCS: 71020 ==

== ENCOUNTER 2017-06-24 12:49 | Emergency (ER) | payer MEDICARE, MEDICAID ==
[2017-06-24] MEDS ORDERED: ONDANSETRON HCL INJ/PF 4 MG/2 ML SDV IV ONE (13:38)
--- NOTE | 2017-06-24 13:40 | ER Document Report ---
ED General - General Mode of Arrival: Medic Information source: Patient, Relative TRAVEL OUTSIDE OF THE [place] IN LAST 30 DAYS: No - HPI Onset: Just prior to arrival Onset/Duration: Sudden Quality of pain: Achy - Right ankle Pain Level: 2 Associated symptoms: Productive cough, Vomiting. denies: Chest pain, Diarrhea, Fever, Headache, Hurts to breath, Nausea, Shortness of breath Exacerbated by: Denies Relieved by: Denies Similar symptoms previously: Yes - Several weeks ago Recently seen / treated by doctor: No <SEVERINO GARNICA - Last Filed: 06/24/17 17:16> <NATALIE ALVARADO - Last Filed: 06/24/17 20:47> - General Stated Complaint: VOMITING Time Seen by Provider: 06/24/17 12:52 Notes: With use of [facility] pediatric speech therapist services, patient reports vomiting just prior to arrival. Family member states that he has had 2 similar episodes recently a couple weeks ago. Patient states that he feels like some of his medications do not agree with him but is uncertain which medication it may be. Patient denies any recent changes to his medication regimen. Patient denies any headache, chest pain, abdominal pain or back pain at this time. Patient states he has had right ankle pain since yesterday and is uncertain if he might have scratched or injured his ankle in some way. Patient does complain of productive cough for the past month. (SEVERINO GARNICA) - Related Data Allergies/Adverse Reactions: No Known Allergies Allergy (Verified 05/01/15 16:02) Home Medications: Current Home Medications Dutasteride 0.5 mg PO DAILY 06/24/17 [History] Metoprolol Tartrate 50 mg PO DAILY 06/24/17 [History] Tamsulosin HCl 0.4 mg PO DAILY 06/24/17 [History] Warfarin Sodium 3 mg PO DAILY 06/24/17 [History] Past Medical History - General Information source: Patient - Social History Smoking Status: Never Smoker Frequency of alcohol use: None Drug Abuse: None Occupation: None Lives with: Family Family History: None, Other - Unknown mother and father history - Past Medical History Cardiac Medical History: Reports: Hx Atrial Fibrillation, Hx Hypercholesterolemia, Hx Hypertension Neurological Medical History: Reports: Hx Cerebrovascular Accident Renal/ Medical History: Reports: Hx Benign Prostatic Hyperplasia Surgical Hx: Negative - Immunizations Hx Diphtheria, Pertussis, Tetanus Vaccination: No <SEVERINO GARNICA - Last Filed: 06/24/17 17:16> Review of Systems - Review of Systems Constitutional: No symptoms reported. denies: Fever, Recent illness EENT: No symptoms reported Cardiovascular: No symptoms reported. denies: Chest pain, Dizziness, Lightheaded Respiratory: Cough, Sputum. denies: Short of breath Gastrointestinal: Vomiting. denies: Abdominal pain, Diarrhea, Constipation, Poor appetite Genitourinary: No symptoms reported. denies: Dysuria Male Genitourinary: No symptoms reported Musculoskeletal: No symptoms reported. denies: Back pain Skin: No symptoms reported Hematologic/Lymphatic: No symptoms reported Neurological/Psychological: denies: Confusion, Lost consciousness, Headaches <SEVERINO GARNICA - Last Filed: 06/24/17 17:16> Physical Exam - General General appearance: Appears well, Alert In distress: None - HEENT Head: Normocephalic, Atraumatic Eyes: Normal Conjunctiva: Normal Nasal: Normal Mouth/Lips: Normal Mucous membranes: Normal Pharynx: Normal Neck: Normal, Supple. No: Lymphadenopathy - Respiratory Respiratory status: No respiratory distress Chest status: Nontender Breath sounds: Normal Chest palpation: Normal - Cardiovascular Rhythm: Irregularly irregular Heart sounds: S1 appreciated, S2 appreciated Murmur: No - Abdominal Inspection: Normal Distension: No distension Bowel sounds: Normal Tenderness: Nontender Organomegaly: No organomegaly - Back Back: Normal, Nontender. No: CVA tenderness, Vertebra tenderness - Extremities General upper extremity: Normal inspection, Normal strength General lower extremity: Tender - right ankle Thigh: Normal, Nontender Knee: Normal, Nontender Calf: Normal, Nontender Ankle: Tender - right anterior ankle tenderness, tender, erythematous area that is warm to touch. No: Laceration, Limited ROM Foot: Normal, Nontender - Neurological Neuro grossly intact: Yes Bianca Coma Scale Eye Opening: Spontaneous [place] Coma Scale Verbal: Oriented [place] Coma Scale Motor: Obeys Commands [place] Coma Scale Total: 15 - Psychological Associated symptoms: Normal affect, Normal mood - Skin Skin Temperature: Warm Skin Moisture: Dry Skin Color: Erythema - Anterior lateral aspect of right ankle <SEVERINO GARNICA - Last Filed: 06/24/17 17:16> - Vital signs Vitals: Resp BP Pulse Ox 22 H 126/82 H 93 06/24/17 12:59 06/24/17 12:59 06/24/17 12:59 Course - Laboratory Result Diagrams: 06/24/17 14:19 06/24/17 14:19 - Diagnostic Test Radiology reviewed: Reports reviewed <DANIKA,MARINAJAMIEAKILA - Last Filed: 06/24/17 17:16> - Laboratory Result Diagrams: 06/24/17 14:19 06/24/17 14:19 <NATALIE ALVARADO - Last Filed: 06/24/17 20:47> - Re-evaluation Re-evalutation: 06/24/17 16:00 Dr. Alvarado to bedside for consultation, recommends covering with Keflex to treat for cellulitis. No additional diagnostic tests advised at this time. Does recommend giving patient additional dose of Coumadin and having him follow-up with his primary doctor to have his INR rechecked. Patient's abdomen soft, nontender. 06/24/17 16:18 Patient without any nausea or vomiting during ER stay. Patient does continue with right ankle tenderness. Will plan to treat patient's symptoms to cover for cellulitis. Patient nontoxic in appearance. Patient denies any chest pain , dyspnea, abdominal pain or back pain. Vital signs stable. Discussed worsening signs or symptoms that patient should return immediately for. Patient and family verbalized understanding and agree with plan of care. 06/24/17 17:17 (SEVERINO GARNICA) 66 yo male with nausea and vomiting, but no abdominal tenderness. He also has a tender erythematous area over his right anterior moya. No evidence of septic ankle joint. With the tenderness, will treat with Keflex for possible cellulitis and follow-up his primary care physician. (NATALIE ALVARADO) - Vital Signs Vital signs: Temp Pulse Resp BP Pulse Ox 97.8 F 14 100/64 95 06/24/17 17:08 06/24/17 17:08 06/24/17 17:08 06/24/17 17:08 - Laboratory Laboratory results interpreted by me: 06/24/17 06/24/17 06/24/17 14:19 14:19 14:19 RBC 5.83 H Hgb 17.9 H Hct 52.8 H Seg Neutrophils % 82.4 H Lymphocytes % 10.1 L PT 16.2 H Carbon Dioxide 32 H Creatine Kinase 49 L Labs- Entire Visit 06/24/17 06/24/17 06/24/17 14:19 14:19 14:19 WBC 8.9 RBC 5.83 H Hgb 17.9 H Hct 52.8 H MCV 91 MCH 30.8 MCHC 33.9 RDW 13.2 Plt Count 217 Seg Neutrophils % 82.4 H Lymphocytes % 10.1 L Monocytes % 6.6 Eosinophils % 0.3 Basophils % 0.6 Absolute Neutrophils 7.3 Absolute Lymphocytes 0.9 Absolute Monocytes 0.6 Absolute Eosinophils 0.0 Absolute Basophils 0.1 PT INR Sodium 144.2 Potassium 3.9 Chloride 101 Carbon Dioxide 32 H Anion Gap 11 BUN 13 Creatinine 0.66 Est GFR ( Amer) > 60 Est GFR (Non-Af Amer) > 60 Glucose 93 Uric Acid 5.9 Calcium 9.6 Total Bilirubin 1.3 Direct Bilirubin 0.3 Neonat Total Bilirubin Not Reportable Neonat Direct Bilirubin Not Reportable Neonat Indirect Bili Not Reportable AST 35 ALT 37 Alkaline Phosphatase 94 Creatine Kinase 49 L CK-MB (CK-2) 1.55 Troponin I < 0.012 Total Protein 7.3 Albumin 3.9 Lipase 66.8 06/24/17 14:19 WBC RBC Hgb Hct MCV MCH MCHC RDW Plt Count Seg Neutrophils % Lymphocytes % Monocytes % Eosinophils % Basophils % Absolute Neutrophils Absolute Lymphocytes Absolute Monocytes Absolute Eosinophils Absolute Basophils PT 16.2 H INR 1.22 Sodium Potassium Chloride Carbon Dioxide Anion Gap BUN Creatinine Est GFR ( Amer) Est GFR (Non-Af Amer) Glucose Uric Acid Calcium Total Bilirubin Direct Bilirubin Neonat Total Bilirubin Neonat Direct Bilirubin Neonat Indirect Bili AST ALT Alkaline Phosphatase Creatine Kinase CK-MB (CK-2) Troponin I Total Protein Albumin Lipase (SEVERINO GARNICA) Discharge <SEVERINO GARNICA - Last Filed: 06/24/17 17:16> <NATALIE ALVARADO - Last Filed: 06/24/17 20:47> - Discharge Clinical Impression: Cellulitis of ankle, Subtherapeutic international normalized ratio (INR) Vomiting Qualifiers: Vomiting type: unspecified Vomiting Intractability: non-intractable Nausea presence: without nausea Qualified Code(s): R11.11 - Vomiting without nausea Condition: Stable Disposition: HOME, SELF-CARE Instructions: Antinausea Medication ([facility]), Cellulitis ([facility]), Cephalexin ([facility]), Vomiting ([facility]) Additional Instructions: Return immediately for any new or worsening symptoms Followup with your primary care provider, call tomorrow to make a followup appointment Your INR level was lower than it should be. Take your usual evening dose of Coumadin tonight as prescribed. Have your primary doctor recheck your INR test as they may need to adjust her medications. Call their office tomorrow for an appointment. Prescriptions: Cephalexin Monohydrate [Keflex 500 mg Capsule] 500 mg PO Q6H 5 Days capsule Ondansetron HCl [Zofran 4 mg Tablet] 1 tab PO Q6 PRN #8 tablet PRN Reason: Referrals: SARAH BRAVO DO [NO LOCAL MD] - Follow up tomorrow
--- NOTE | 2017-06-24 14:20 | EKG REPORT ---
SEVERITY:- ABNORMAL ECG - ATRIAL FIBRILLATION, V-RATE 40-66 REPOL ABNRM SUGGESTS ISCHEMIA, ANT-LAT LEADS : Confirmed by: Roselyn Collier 24-Jun-2017 14:19:12
[2017-06-24 14:30] LABS: ABSOLUTE BASOPHILS # (AUTO) 0.1 10^3/uL (0.0-0.2); ABSOLUTE LYMPHOCYTES (AUTO) 0.9 10^3/uL (0.5-4.7); ABSOLUTE MONOCYTES (AUTO) 0.6 10^3/uL (0.1-1.4); ABSOLUTE NEUT (AUTO) 7.3 10^3/uL (1.7-8.2); BASOPHILS % (AUTO) 0.6 % (0-2); EOSINOPHILS % (AUTO) 0.3 % (0-6); HEMATOCRIT 52.8 % (37.9-51.0); HEMOGLOBIN 17.9 g/dL (13.5-17.0); LYMPHOCYTES % (AUTO) 10.1 % (13-45); MEAN CORPUSCULAR HEMOGLOBIN 30.8 pg (27.0-33.4); MEAN CORPUSCULAR HGB CONC 33.9 g/dL (32.0-36.0); MEAN CORPUSCULAR VOLUME 91 fl (80-97); MONOCYTES % (AUTO) 6.6 % (3-13); PLATELET COUNT 217 10^3/uL (150-450); RED BLOOD COUNT 5.83 10^6/uL (4.35-5.55); RED CELL DISTRIBUTION WIDTH 13.2 % (11.5-14.0); SEGMENTED NEUTROPHILS % (AUTO) 82.4 % (42-78); TOTAL CELLS COUNTED % (AUTO) 100 %; WHITE BLOOD COUNT 8.9 10^3/uL (4.0-10.5)
[2017-06-24 14:38] LABS: INTERNATIONAL RATION (INR) 1.22; PROTHROMBIN TIME 16.2 SEC (11.4-15.4)
[2017-06-24 14:51] LABS: ALANINE AMINOTRANSFERASE 37 U/L (21-72); ALBUMIN 3.9 g/dL (3.5-5.0); ALKALINE PHOSPHATASE 94 U/L (38-126); ANION GAP 11 (5-19); ASPARTATE AMINO TRANSFERASE 35 U/L (17-59); BILIRUBIN,DIRECT 0.3 mg/dL (0.0-0.4); BILIRUBIN,TOTAL 1.3 mg/dL (0.2-1.3); BLOOD UREA NITROGEN 13 mg/dL (7-20); CALCIUM 9.6 mg/dL (8.4-10.2); CARBON DIOXIDE 32 mmol/L (22-30); CHLORIDE 101 mmol/L (98-107); CREATINE KINASE 49 U/L (55-170); GLUCOSE 93 mg/dL (75-110); LIPASE 66.8 U/L (23-300); POTASSIUM 3.9 mmol/L (3.6-5.0); SODIUM 144.2 mmol/L (137-145); TOTAL PROTEIN 7.3 g/dL (6.3-8.2); URIC ACID 5.9 mg/dL (3.5-8.5)
[2017-06-24 15:02] LABS: CREATINE KINASE MB 1.55 ng/mL (<4.55); TROPONIN I < 0.012 ng/mL
[2017-06-24 15:13] VITALS: BP 100/64
--- NOTE | 2017-06-24 15:16 | RADIOLOGY REPORT (SQ) ---
EXAM DESCRIPTION: ANKLE RIGHT COMPLETE COMPLETED DATE/TIME: 06/24/2017 2:53 pm REASON FOR STUDY: r ankle pain COMPARISON: None. NUMBER OF VIEWS: Three views. TECHNIQUE: AP, lateral, and oblique radiographic images acquired of the right ankle. LIMITATIONS: None. FINDINGS: MINERALIZATION: Normal. BONES: Well corticated bony density adjacent to the medial malleolus consistent with accessory ossicl e. No acute fracture or dislocation. No worrisome bone lesions. Moderate size calcaneal spurs at t he insertion of the Achilles and plantar aponeurosis. JOINTS: No effusions. SOFT TISSUES: Diffuse soft tissue swelling. OTHER: No other significant finding. IMPRESSION: 1. Soft tissue swelling without evidence acute fracture. 2. Well corticated bony density adjacent the medial malleolus consistent with accessory ossicle or o ld injury. 3. Moderate size calcaneal spurs. TECHNICAL DOCUMENTATION: JOB ID: [id number] [employer]- All Rights Reserved
--- NOTE | 2017-06-24 15:20 | RADIOLOGY REPORT (SQ) ---
EXAM DESCRIPTION: ACUTE ABDOMEN SERIES COMPLETED DATE/TIME: 06/24/2017 2:53 pm REASON FOR STUDY: cough, vomiting COMPARISON: Chest x-ray dated 09/28/2016. NUMBER OF VIEWS: Three views. TECHNIQUE: Frontal chest, supine abdomen and upright/decubitus abdomen radiographic images acquired. LIMITATIONS: None. FINDINGS: CHEST: Lungs clear of infiltrates. Chronic elevation of the right hemidiaphragm. FREE AIR: None. No abnormal gas collections. Gas below the right hemidiaphragm related to loop of co jassi seen on prior studies. BOWEL GAS PATTERN: Nonobstructive pattern. No dilated loops or air fluid levels. CALCIFICATIONS: No suspicious calcifications. HARDWARE: None in the abdomen. SOFT TISSUES: No gross mass or suggestion of organomegaly. BONES: No acute fracture. No worrisome bone lesions. OTHER: No other significant finding. IMPRESSION: NO RADIOGRAPHIC EVIDENCE FOR ACUTE ABDOMINAL DISEASE. TECHNICAL DOCUMENTATION: JOB ID: [id number] [employer]- All Rights Reserved
[2017-06-24] MEDS ORDERED: WARFARIN SODIUM 3 MG TABLET PO ONE (15:59)
[2017-06-24] MEDS ORDERED: CEPHALEXIN 500 MG CAPSULE PO ONE (16:17)
[2017-06-24] MEDS ORDERED: ACETAMINOPHEN 325 MG TABLET PO ONE (16:26)
== END 2017-06-24 18:59 | disposition home or self-care (01) ==
LOC: ER 12:49
DX: R11.11 Vomiting without nausea (principal); L03.119 Cellulitis of unspecified part of limb; R05 Cough; M25.571 Pain in right ankle and joints of right foot; R79.1 Abnormal coagulation profile; I10 Essential (primary) hypertension; Z86.73 Personal history of transient ischemic attack (TIA), and cerebral infarction without residual deficits
CPT/HCPCS: 93005; 99285; 96374; 36415; 82553; 82550; 83690; 84550; 85025; 85610; 80053; 84484; 74022; 73610; 93010; A9270 ×3; J2405; J3490

== ENCOUNTER 2017-07-02 11:11 | Emergency (ER) | payer MEDICARE, MEDICAID ==
[2017-07-02] MEDS ORDERED: CLINDAMYCIN 300 MG/D5W RTU 300 MG/50 ML RTUPB IV ONE (11:50)
--- NOTE | 2017-07-02 11:50 | ER Document Report ---
ED Medical Screen (RME) - General Chief Complaint: Leg Swelling Stated Complaint: RIGHT LEG PAIN Time Seen by Provider: 07/02/17 11:39 Notes: 67-year-old male here with daughter who states that for the past 6 days, he has had swelling pain and color change to his lower extremities including redness to the right lower extremity and blueness to the left lower extremity. The patient does note some pain along with the swelling. Daughter reports no prior history of similar. She denies any previous history of peripheral vascular disease. She reports that his legs usually are of a normal color. He was seen here earlier this month for vomiting and was prescribed Keflex. EXAM Left foot mild to moderate cyanosis, cold Right leg moderate erythema with 2+ pitting edema TRAVEL OUTSIDE OF THE [place] IN LAST 30 DAYS: No - Related Data Allergies/Adverse Reactions: No Known Allergies Allergy (Verified 07/02/17 11:12) Past Medical History - Social History Chew tobacco use (# tins/day): No Frequency of alcohol use: None Drug Abuse: None - Past Medical History Cardiac Medical History: Reports: Hx Atrial Fibrillation, Hx Hypercholesterolemia, Hx Hypertension Neurological Medical History: Reports: Hx Cerebrovascular Accident Renal/ Medical History: Reports: Hx Benign Prostatic Hyperplasia. Denies: Hx Peritoneal Dialysis - Immunizations Hx Diphtheria, Pertussis, Tetanus Vaccination: No Physical Exam - Vital signs Vitals: Temp Pulse Resp BP Pulse Ox 97.3 F 92 18 113/78 95 07/02/17 11:28 07/02/17 11:28 07/02/17 11:28 07/02/17 11:28 07/02/17 11:28 Course - Vital Signs Vital signs: Temp Pulse Resp BP Pulse Ox 97.3 F 92 18 113/78 95 07/02/17 11:28 07/02/17 11:28 07/02/17 11:28 07/02/17 11:28 07/02/17 11:28
[2017-07-02 12:55] LABS: ABSOLUTE BASOPHILS # (AUTO) 0.1 10^3/uL (0.0-0.2); ABSOLUTE EOSINOPHILS # (AUTO) 0.1 10^3/uL (0.0-0.6); ABSOLUTE LYMPHOCYTES (AUTO) 1.5 10^3/uL (0.5-4.7); ABSOLUTE MONOCYTES (AUTO) 1.1 10^3/uL (0.1-1.4); ABSOLUTE NEUT (AUTO) 8.2 10^3/uL (1.7-8.2); BASOPHILS % (AUTO) 0.7 % (0-2); EOSINOPHILS % (AUTO) 0.9 % (0-6); HEMATOCRIT 52.9 % (37.9-51.0); HEMOGLOBIN 17.8 g/dL (13.5-17.0); LYMPHOCYTES % (AUTO) 13.4 % (13-45); MEAN CORPUSCULAR HEMOGLOBIN 30.8 pg (27.0-33.4); MEAN CORPUSCULAR HGB CONC 33.7 g/dL (32.0-36.0); MEAN CORPUSCULAR VOLUME 91 fl (80-97); MONOCYTES % (AUTO) 9.8 % (3-13); PLATELET COUNT 268 10^3/uL (150-450); RED BLOOD COUNT 5.79 10^6/uL (4.35-5.55); RED CELL DISTRIBUTION WIDTH 13.2 % (11.5-14.0); SEGMENTED NEUTROPHILS % (AUTO) 75.2 % (42-78); TOTAL CELLS COUNTED % (AUTO) 100 %; WHITE BLOOD COUNT 10.9 10^3/uL (4.0-10.5)
[2017-07-02 13:19] LABS: ANION GAP 14 (5-19); BLOOD UREA NITROGEN 13 mg/dL (7-20); CALCIUM 9.3 mg/dL (8.4-10.2); CARBON DIOXIDE 31 mmol/L (22-30); CHLORIDE 100 mmol/L (98-107); GLUCOSE 91 mg/dL (75-110); POTASSIUM 3.8 mmol/L (3.6-5.0); SODIUM 144.9 mmol/L (137-145)
--- NOTE | 2017-07-02 15:27 | ER Document Report ---
ED General - General Chief Complaint: Leg Swelling Stated Complaint: RIGHT LEG PAIN Time Seen by Provider: 07/02/17 11:39 TRAVEL OUTSIDE OF THE [place] 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 fib, hyper lipidemia, hypertension, CVA, BPH presents today with complaints of right lower extremity erythema, warmth to touch 1 week also patient and daughter complaining of left lower leg coolness, decreased pulses 3 days. Denies any fevers or chills. She was seen approximately 8 days ago for right ankle cellulitis Patient was discharged on Keflex. Patient has been taking medication without issues. Eating and drinking without issues. Any chest pain , shortness of breath, nausea, vomiting, diarrhea, abdominal,rectal, testicular pain. denies blurred vision, double vision, loss of vision, - Related Data Allergies/Adverse Reactions: No Known Allergies Allergy (Verified 07/02/17 11:12) Past Medical History - General Information source: Patient, Relative - Translation services - Social History Smoking Status: Current Every Day Smoker Chew tobacco use (# tins/day): No Frequency of alcohol use: None Drug Abuse: None Family History: None, Other - Unknown mother and father history Patient has suicidal ideation: No Patient has homicidal ideation: No - Past Medical History Cardiac Medical History: Reports: Hx Atrial Fibrillation, Hx Hypercholesterolemia, Hx Hypertension Neurological Medical History: Reports: Hx Cerebrovascular Accident Renal/ Medical History: Reports: Hx Benign Prostatic Hyperplasia. Denies: Hx Peritoneal Dialysis - Immunizations Hx Diphtheria, Pertussis, Tetanus Vaccination: No Review of Systems - Review of Systems Constitutional: No symptoms reported EENT: No symptoms reported Cardiovascular: No symptoms reported Respiratory: No symptoms reported Gastrointestinal: No symptoms reported Genitourinary: No symptoms reported Male Genitourinary: No symptoms reported Musculoskeletal: No symptoms reported Skin: See HPI Hematologic/Lymphatic: No symptoms reported Neurological/Psychological: No symptoms reported Physical Exam - Vital signs Vitals: Temp Pulse Resp BP Pulse Ox 97.3 F 92 18 113/78 95 07/02/17 11:28 07/02/17 11:28 07/02/17 11:28 07/02/17 11:28 07/02/17 11:28 - Notes Notes: PHYSICAL EXAMINATION: GENERAL: Well-appearing, well-nourished and in no acute distress. HEAD: Atraumatic, normocephalic. EYES: Pupils equal round and reactive to light, extraocular movements intact, sclera anicteric, conjunctiva are normal. ENT: Nares patent, oropharynx clear without exudates. Moist mucous membranes. NECK: Normal range of motion, supple without lymphadenopathy LUNGS: Breath sounds clear to auscultation bilaterally and equal. No wheezes rales or rhonchi. HEART: Regular rate and rhythm without murmurs ABDOMEN: Soft, nontender, nondistended abdomen. No guarding, no rebound. No masses appreciated. Musculoskeletal: Normal range of motion, no pitting or edema. No cyanosis. NEUROLOGICAL: Cranial nerves grossly intact. Normal speech, normal gait. Normal sensory, motor exams PSYCH: Normal mood, normal affect. SKIN: Warm, Dry, normal turgor, no rashes or lesions noted. cap refill less than 3 seconds. right lower leg and calf calf tenderness with palpation. negative leander's sign. anterior and posterior drawer test negative.Dtr + 2 in BLE. Full motor and sensory function. no ecchymosis or abrasions noted. Bilateral lower extremity without deformity or asymmetry. Right lower extremity erythema extending from right ankle to mid calf with erythema, warmth to touch with a noted scab on the lateral aspect of ankle. No open wounds or drainage. Pedal pulses +2. Right lower extremity with coolness to touch, cap refill less than 5 seconds, no noted ulcers, scars, edema, erythema. Palpable distal pulse , +2 on palpation left lower extremity, palpable popliteal artery +2. No lesions or break in the skin integrity. No evidence of compartment syndrome, lymphadenopathy, gangrene. No palpable cords or evidence of thrombophlebitis. Course - Re-evaluation Re-evalutation: 07/02/17 16:20 ultrasound of extremity negative for DVT. Arterial Doppler triphasic flow, results negative any acute findings. Laboratory findings negative for any leukocytosis, kidney enzymes within normal limits. patient given IV clindamycin. Will switch patient from oral Keflex to clindamycin and Bactrim orally. Discussed with patient the need to return to the emergency room if erythema, swelling, warmth right lower leg becomes worse. Follow-up with primary care provider within 24 hours. This is all communicated Via appsplit. Patient verbalized understanding and agreed with plan of care. - Vital Signs Vital signs: Temp Pulse Resp BP Pulse Ox 97.3 F 92 18 113/78 95 07/02/17 11:28 07/02/17 11:28 07/02/17 11:28 07/02/17 11:28 07/02/17 11:28 - Laboratory Result Diagrams: 07/02/17 12:33 07/02/17 12:33 Laboratory results interpreted by me: 07/02/17 07/02/17 07/02/17 12:33 12:33 12:33 WBC 10.9 H RBC 5.79 H Hgb 17.8 H Hct 52.9 H Carbon Dioxide 31 H Lactic Acid 2.7 H Discharge - Discharge Clinical Impression: Cellulitis of right leg, Peripheral vascular disease Condition: Good Disposition: HOME, SELF-CARE Instructions: Cellulitis ([facility]) Additional Instructions: CELLULITIS: You have an infection of your skin and underlying soft tissues called cellulitis. This is due to bacteria, which can enter through any break in the skin, or even through an irritated hair follicle. Untreated, cellulitis will usually worsen. Antibiotics are required. Usually, warm packs or warm soaks, and elevation of the infected area are recommended. You should start getting better within 24 to 36 hours. Most infections respond quickly to the right medication. Follow-up care is important, however, to check for abscess (boil) formation, unsuspected foreign body, or resistant infection. If you develop fever, chills, or if the area of infection is becoming rapidly more swollen or painful, call the doctor at once. MRSA CELLULITIS: You have an infection of your skin and underlying soft tissues called cellulitis. This is due to bacteria, which can enter through any break in the skin, or even through an irritated hair follicle. Untreated, cellulitis will usually worsen and may form an abscess which requires draining. Although many bacterial organisms can cause cellulitis and abscess formations, the most likely bacteria is Methicillin-Resistant Staph Aureus, or MRSA for short. Antibiotics are required. Usually, warm packs or warm soaks, and elevation of the infected area are recommended. You should start getting better within 24 to 36 hours. Most infections respond quickly to the right medication. Follow-up care is important, however, to check for abscess (boil) formation, unsuspected foreign body, or resistant infection. If you develop fever, chills, or if the area of infection is becoming rapidly more swollen or painful, call the doctor at once. ANTIBIOTIC THERAPY: You have been given an antibiotic prescription. It's important that you take all the medication, unless instructed otherwise by your physician. Failure to complete the entire course can result in relapse of your condition. Common side effects of antibiotics include nausea, intestinal cramping, or diarrhea. Women may develop vaginal yeast infections, and babies can get yeast (thrush) in the mouth following the use of antibiotics. Contact your physician if you develop significant side effects from this medication. Allergy to this antibiotic can result in hives, wheezing, faintness, or itching. If symptoms of allergy occur, stop the medication and call the doctor. TRIMETHOPRIM-SULFA: You have been given a prescription for trimethoprim-sulfa (TMS, Septra, Bactrim). This is a combination antibiotic of the sulfa class, often used for urinary tract infections, middle ear infections, bronchitis, shigella intestinal infection, and Pneumocystis pneumonia. TMS is usually well-tolerated. Occasional side effects include nausea and decreased appetite. Septra is not recommended for infants less than two months of age. Do not take this medication if you have experienced severe side effects or allergy to sulfa medicine. You should stop this medicine at once and contact your physician if you develop any rash, joint pain, shortness of breath, bruising, or jaundice ( yellow color in the skin), or if you develop any other new or unusual symptoms. CLINDAMYCIN: You have been given a prescription for the antibiotic clindamycin. It is often prescribed for infections in the mouth, such as dental infections or abscesses, and for skin infections due to MRSA. It's important that you take all the medication, unless instructed otherwise by your physician. Failure to complete the entire course can result in relapse of your condition. Common side effects of antibiotics include nausea, intestinal cramping, or diarrhea. Women may develop vaginal yeast infections, and babies can get yeast (thrush) in the mouth following the use of antibiotics. Contact your physician if you develop significant side effects from this medication. Allergy to this antibiotic can result in hives, wheezing, faintness, or itching. If symptoms of allergy occur, stop the medication and call the doctor. Please be aware that prescription narcotics also have the potential for abuse. People become addicted to these medications because of the general sense of wellbeing that they induce. This feeling along with a significant reduction in tension, anxiety, and aggression provides a stimulating seductive quality to these drugs. Once your pain is under control, we encourage you to discard your unused narcotics. FOLLOW-UP CARE: If you have been referred to a physician for follow-up care, call the physician s office for an appointment as you were instructed or within the next two days. If you experience worsening or a significant change in your symptoms, notify the physician immediately or return to the Emergency Department at any time for re-evaluation. If erythema becomes worse, swelling, warmth to touch, return to the emergency room for IV antibiotics MORRIS. Return immediately for any new or worsening symptoms. Stop taking Keflex. Take ibuprofen and Tylenol as needed for pain or fevers. Elevate above the level of heart. Warm compress on site 20 minutes on 20 minutes off several times a day. Follow-up with PCP within 24 hours. Regarding PVD and cellulitis of lower extremity. Follow up with primary care provider, call tomorrow to make followup appointment. Prescriptions: Clindamycin HCl 300 mg PO Q6 #28 capsule Sulfamethoxazole/Trimethoprim [Bactrim Ds Tablet] 1 each PO BID #20 tablet Referrals: MELA LINDO MD [ACTIVE STAFF] - Follow up as needed Print Language: Georgian
--- NOTE | 2017-07-02 16:56 | XCELERA REPORT ---
[address] [address] Lower Extremity Venous Evaluation Name: JUAN MANCIA Age: 67 yrs Gender: Male : 1950 Patient Status: Emergency Patient Location: ER Study Date: 07/02/2017 03:44 PM Procedure: Color flow and duplex imaging of the veins of the right lower extremity as well as the left Common Femoral vein. Reason For Study: RLE swelling and warmth to touch Ordering Physician: SHANI MCCLELLAN Performed By: Laura Gu Right Sided Venous Evaluation Normal vessel filling wall to wall, compression and augmentation as well as Colour flow down to the infrageniculate veins. Left Sided Venous Evaluation The left common femoral vein is fully compressible. Spontaneous and phasic flow is present in the left common femoral vein. Interpretation Summary No duplex evidence of DVT or obstruction in the right lower extremity nor in the left Common Femoral vein. : SHANI MCCLELLAN > James Laureano
--- NOTE | 2017-07-02 17:11 | XCELERA REPORT ---
[address] [address] Lower Extremity Arterial Evaluation Name: JUAN MANCIA Age: 67 yrs Gender: Male : 1950 Patient Status: Emergency Patient Location: ER Study Date: 07/02/2017 12:51 PM Procedure: A color flow and duplex scan of the lower extremity arteries was performed bilaterally with velocity and waveform anaylsis. 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 0 % stenosis. Ankle Brachial index not done due to open wounds. Left Side Arterial Evaluation Normal velocity and triphasic waveforms noted from the Common Femoral artery to the infrageniculate vessels. 0 % stenosis. Ankle Brachial index not done due to pain. Interpretation Summary No hemodynamically significant lesions in the bilateral lower extremities, on duplex imaging, at rest. : AMISH HALLMAN [place]
[2017-07-02 17:44] VITALS: BP 120/63
== END 2017-07-02 17:44 | disposition home or self-care (01) ==
LOC: ER 11:11
DX: I73.9 Peripheral vascular disease, unspecified (principal); M79.89 Other specified soft tissue disorders; M79.604 Pain in right leg; I48.91 Unspecified atrial fibrillation; E78.5 Hyperlipidemia, unspecified; I10 Essential (primary) hypertension; Z86.73 Personal history of transient ischemic attack (TIA), and cerebral infarction without residual deficits; F17.200 Nicotine dependence, unspecified, uncomplicated
CPT/HCPCS: 99284; 96365; 36415; 87040; 85025; 80048; 83605; 93971 ×2; 93925 ×2; J3490

== ENCOUNTER 2017-09-05 05:29 | Inpatient (IN) | payer MEDICARE, MEDICAID ==
--- NOTE | 2017-09-05 05:58 | RADIOLOGY REPORT (SQ) ---
EXAM DESCRIPTION: CT HEAD WITHOUT CLINICAL HISTORY: 67 years Male, weakness, previous history of stroke COMPARISON: 2.3.17 TECHNIQUE: No contrast. This exam was performed according to our departmental dose-optimization program, which includes automated exposure control, adjustment of the mA and/or kV according to patient size and/or use of iterative reconstruction technique. FINDINGS: Moderate right posterior parietal encephalomalacia.. Small right occipital encephalomalacia. 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 Mild cerebral volume loss. Moderate white matter microangiopathy. Ex vacuo enlargement of the right lateral ventricle, occipital horn. Atherosclerosis. No hemorrhage. No mass, mass effect, or midline shift. Extra-axial structures appear otherwise grossly intact. Impression: No acute findings. Critical results reporting: The results of the examination have been personally discussed with the referring health care provider, SAURAV KUMAR DO, immediately following interpretation of the examination on 09/05/2017 4:53 AM CDT.
--- NOTE | 2017-09-05 06:05 | ER Document Report ---
ED General - General Chief Complaint: General Weakness Stated Complaint: GENERAL WEAKNESS Time Seen by Provider: 09/05/17 06:02 Notes: History obtained using He[employer]. The patient is a 67-year-old male with a history of A. fib (on Coumadin), hyperlipidemia, hypertension, CVA (w/ mild residual right-sided weakness), BPH, who presents with inability to move his right arm or leg with numbness. He said it started at 2300 last night, but he told his daughter that 05:00 who called 911. Patient said he normally is able to go around the house in a wheelchair, but he was unable to get in the wheelchair this morning to go the bathroom. He denies chest pain, shortness of breath, headache, nausea, vomiting, back pain, fevers, urinary symptoms or rash. TRAVEL OUTSIDE OF THE [place] IN LAST 30 DAYS: No - Related Data Allergies/Adverse Reactions: No Known Allergies Allergy (Verified 07/02/17 11:12) Past Medical History - General Information source: Patient, Emergency Med Personnel - Social History Smoking Status: Unknown if Ever Smoked Family History: None, Other - Unknown mother and father history - Past Medical History Cardiac Medical History: Reports: Hx Atrial Fibrillation, Hx Hypercholesterolemia, Hx Hypertension Neurological Medical History: Reports: Hx Cerebrovascular Accident Renal/ Medical History: Reports: Hx Benign Prostatic Hyperplasia. Denies: Hx Peritoneal Dialysis - Immunizations Hx Diphtheria, Pertussis, Tetanus Vaccination: No Review of Systems - Review of Systems Notes: REVIEW OF SYSTEMS: CONSTITUTIONAL: -fevers, -chills EENT: -eye pain, -difficulty swallowing, -nasal congestion CARDIOVASCULAR: -chest pain, -syncope. RESPIRATORY: -cough, -SOB GASTROINTESTINAL: -abdominal pain, -nausea, -vomiting, -diarrhea GENITOURINARY: -dysuria, -hematuria MUSCULOSKELETAL: -back pain, -neck pain SKIN: -rash or skin lesions. HEMATOLOGIC: -easy bruising or bleeding. LYMPHATIC: -swollen, enlarged glands. NEUROLOGICAL: -altered mental status or loss of consciousness, -headache, + right arm and leg weakness and numbness PSYCHIATRIC: -anxiety, -depression. ALL OTHER SYSTEMS REVIEWED AND NEGATIVE. Physical Exam - Vital signs Vitals: Temp Resp BP Pulse Ox 98.8 F 24 H 178/116 H 93 09/05/17 05:45 09/05/17 05:45 09/05/17 05:45 09/05/17 05:45 - Notes Notes: PHYSICAL EXAMINATION: GENERAL: Well-appearing, well-nourished and in no acute distress. HEAD: Atraumatic, normocephalic. EYES: Pupils equal round and reactive to light, extraocular movements intact, sclera anicteric, conjunctiva are normal. ENT: nares patent, oropharynx clear without exudates. Moist mucous membranes. NECK: Normal range of motion, supple without lymphadenopathy LUNGS: Breath sounds clear to auscultation bilaterally and equal. No wheezes rales or rhonchi. HEART: Irregularly irregular rhythm. ABDOMEN: Soft, nontender, normoactive bowel sounds. No guarding, no rebound. No masses appreciated. EXTREMITIES: No pitting or edema. No cyanosis. Strong distal pulses. NEUROLOGICAL: Cranial nerves grossly intact. Normal speech, unable to test gait. 5/5 strength in LUE and LLE. 0/5 strength in RUE and RLE. Decreased sensation in RUE and RLE. Intact sensation on left side of body. PSYCH: Normal mood, normal affect. SKIN: Warm, Dry, normal turgor, no rashes or lesions noted. Course - Re-evaluation Re-evalutation: Pt with 7 hours of right arm and leg flaccidity and numbness. CT Head does not show an intracranial bleed and he is not a TPA candidate due to 7 hours of symptoms. His NIH stroke scale is 10 and his ABCD2 score is 6. He has a history of A. fib and is supposed to be taking Coumadin, but his INR is normal. Troponin is slightly elevated at 0.10 and repeat 0.11, but no new EKG changes and patient is not having any chest pain. ASA given. Patient's primary care physician is Dr. Patel. He requires admission for anticoagulation and further workup of his new stroke. 09/05/17 09:[address] Barragan (Hospitalist). Will admit patient as Inpatient to [facility]. Recommending MRI/MRA Head/Neck and Lovenox. - Vital Signs Vital signs: Temp Pulse Resp BP Pulse Ox 98.8 F 102 H 20 157/90 H 96 09/05/17 05:45 09/05/17 09:00 09/05/17 09:00 09/05/17 09:00 09/05/17 09:00 - Laboratory Result Diagrams: 09/05/17 05:50 09/05/17 05:50 Laboratory results interpreted by me: 09/05/17 09/05/17 05:50 05:50 WBC 13.3 H RBC 5.67 H Hgb 17.3 H Seg Neutrophils % 81.9 H Lymphocytes % 10.6 L Absolute Neutrophils 10.9 H Glucose 135 H - Diagnostic Test Radiology reviewed: Image reviewed, Reports reviewed Radiology results interpreted by me: CT Head: NAD, evidence of old infarcts CXR: low lung volumes - EKG Interpretation by Me Rhythm: A.Fib When compared to previous EKG there are: No significant change Discharge - Discharge Clinical Impression: Acute CVA (cerebrovascular accident) A-fib Qualifiers: Atrial fibrillation type: chronic Qualified Code(s): I48.2 - Chronic atrial fibrillation Condition: Stable Disposition: ADMITTED INPATIENT Admitting Provider: Hospitalist - [facility] Admitted: [facility]
[2017-09-05] MEDS ORDERED: NORMAL SALINE 1000 ML 1,000 ML IV ONE (06:08)
[2017-09-05 06:16] LABS: ABSOLUTE LYMPHOCYTES (AUTO) 1.4 10^3/uL (0.5-4.7); ABSOLUTE MONOCYTES (AUTO) 0.9 10^3/uL (0.1-1.4); ABSOLUTE NEUT (AUTO) 10.9 10^3/uL (1.7-8.2); BASOPHILS % (AUTO) 0.3 % (0-2); EOSINOPHILS % (AUTO) 0.1 % (0-6); HEMATOCRIT 50.8 % (37.9-51.0); HEMOGLOBIN 17.3 g/dL (13.5-17.0); LYMPHOCYTES % (AUTO) 10.6 % (13-45); MEAN CORPUSCULAR HEMOGLOBIN 30.6 pg (27.0-33.4); MEAN CORPUSCULAR HGB CONC 34.2 g/dL (32.0-36.0); MEAN CORPUSCULAR VOLUME 90 fl (80-97); MONOCYTES % (AUTO) 7.1 % (3-13); PLATELET COUNT 262 10^3/uL (150-450); RED BLOOD COUNT 5.67 10^6/uL (4.35-5.55); RED CELL DISTRIBUTION WIDTH 13.9 % (11.5-14.0); SEGMENTED NEUTROPHILS % (AUTO) 81.9 % (42-78); TOTAL CELLS COUNTED % (AUTO) 100 %; WHITE BLOOD COUNT 13.3 10^3/uL (4.0-10.5)
--- NOTE | 2017-09-05 06:47 | RADIOLOGY REPORT (SQ) ---
EXAM DESCRIPTION: CHEST SINGLE VIEW CLINICAL HISTORY: 67 years Male, STROKE ALERT COMPARISON: 09/28/2016 NUMBER OF VIEWS/TECHNIQUE: 1/AP LIMITATIONS: None. FINDINGS: Moderate-low lung volume. Mild chronic interstitial markings. Normal cardiac silhouette. Mild osteoarthritis. No pneumothorax. No acute bone defect. IMPRESSION: Low lung volume.
[2017-09-05 06:56] LABS: TROPONIN I 0.1 ng/mL
[2017-09-05 06:57] LABS: INTERNATIONAL RATION (INR) 1.03; PARTIAL THROMBOPLASTIN TIME 33.1 SEC (23.5-35.8); PROTHROMBIN TIME 14.2 SEC (11.4-15.4)
[2017-09-05 07:19] LABS: ALANINE AMINOTRANSFERASE 30 U/L (21-72); ALBUMIN 4.2 g/dL (3.5-5.0); ALKALINE PHOSPHATASE 118 U/L (38-126); ANION GAP 15 (5-19); ASPARTATE AMINO TRANSFERASE 31 U/L (17-59); BILIRUBIN,DIRECT 0.3 mg/dL (0.0-0.4); BILIRUBIN,TOTAL 0.9 mg/dL (0.2-1.3); BLOOD UREA NITROGEN 9 mg/dL (7-20); CALCIUM 9.3 mg/dL (8.4-10.2); CARBON DIOXIDE 26 mmol/L (22-30); CHLORIDE 100 mmol/L (98-107); CREATINE KINASE 80 U/L (55-170); GLUCOSE 135 mg/dL (75-110); POTASSIUM 3.9 mmol/L (3.6-5.0); SODIUM 140.9 mmol/L (137-145); TOTAL PROTEIN 7.5 g/dL (6.3-8.2)
--- NOTE | 2017-09-05 08:00 | ER Document Report ---
ED NIH Stroke Scale - NIH Stroke Scale When completed:: Before Alteplase *: 1. NIH scale should be completed with appropriate accompanying assessment tools. *: 2. The NIH should reflect what the patient is capable of doing and should not be coached by the clinician. 1a. Level of Consciousness: 0=Alert;keenly responsive -: 1=Drowsy -: 2=Obtunded -: 3=Coma/unresponsive or reflex to noxious stimuli. 1a. Responses: 0 1b. Orientation Questions: a. What month is it? -: b. How old are you? -: 0=Answers both questions correctly. -: 1=Answers one question correctly or patient is intubated or has orotracheal trauma. -: 2=Answers neither question correctly. 1b. Responses: 1 1c. Response to commands: a. Open and close eyes? -: b. Ambulatory Care Nurse and release hand? -: Credit is given despite weakness. Demonstration of task is permitted. Substitute command if hands cannot be used. -: 0=Performs both tasks correctly -: 1=Performs one task correctly -: 2=Performs neither task correctly 1c. Responses: 0 2. Gaze: Establish eye contact and instruct patient to "Follow my finger" -: 0=Normal -: 1=Partial gaze palsy. Gaze is abnormal in one or both eyes, but where forced deviation or total gaze paresis is not present. -: 2=Forced deviation or total gaze paresis. 2. Responses: 0 3. Visual Vasquez: Sees fingers in all four quadrants. -: 0=No visual loss. -: 1=Partial hemianopsia. -: 2=Complete hemianopsia. -: 3=Bilateral hemianopsia (including Cortical blindness) 3. Responses: 0 4. Facial Movement: Instruct patient to: -: a. Show me your teeth -: b. Raise your eyebrows -: c. Close your eyes -: d. Smile -: 0=Normal symmetrical movement -: 1=Minor paralysis (flattened nasolabial fold, asymmetry on smiling). -: 2=Partial paralysis (total or near total paralysis of lower face). -: 3=Complete paralysis of upper and lower face 4. Responses: 0 5. Motor functions (left arm): Alternate sides and extend each arm with palms down (90 degrees if sitting or 45 degrees for supine). -: 0=No drift;limb holds for full 10 seconds. -: 1=Drift; limb holds but drifts down before full 10 seconds, but does not hit bed. -: 2=Some effort against gravity; limb cannot get to or maintain position. -: 3=No effort against gravity; limb falls. -: 4=No movement. -: UN=Amputation, joint fusion, explain in comments. 5. Responses (left arm): 0 5. Motor Functions (right arm): Alternate sides and extend each arm with palms down (90 degrees if sitting or 45 degrees for supine). -: 0=No drift;limb holds for full 10 seconds. -: 1=Drift; limb holds but drifts down before full 10 seconds, but does not hit bed. -: 2=Some effort against gravity; limb cannot get to or maintain position. -: 3=No effort against gravity; limb falls. -: 4=No movement. -: UN=Amputation, joint fusion, explain in comments. 5. Responses (right arm): 4 6. Motor Functions (left leg): With patient lying supine, alternate sides and extend each leg (30 degrees always while supine). -: 0=No drift, leg holds position for full 5 seconds -: 1=Drift; leg falls before full 5 seconds but does not hit bed. -: 2=Some effort against gravity, leg falls to bed but some effort against gravity. -: 3=No effort against gravity, leg falls to bed immediately. -: 4=No movement. -: UN=Amputation, joint fusion; explain in comments. 6. Responses (left leg): 0 6. Motor Functions (right leg): With patient lying supine, alternate sides and extend each leg (30 degrees always while supine). -: 0=No drift, leg holds position for full 5 seconds -: 1=Drift; leg falls before full 5 seconds but does not hit bed. -: 2=Some effort against gravity, leg falls to bed but some effort against gravity. -: 3=No effort against gravity, leg falls to bed immediately. -: 4=No movement. -: UN=Amputation, joint fusion; explain in comments. 6. Responses (right leg): 4 7. Limb Ataxia: With eyes open instruct patient to: -: a. "Touch your finger to your nose". -: b. "Touch your heel to your moya" -: 0=Absent -: 1=Present in one limb. -: 2=Present in two limbs. -: UN=Amputation or joint fusion; explain in comments. 7. Responses: 0 8. Sensory: Test sensation using pinprick or noxious stimuli. Test as many body parts as possible. -: 0=Normal;no sensory loss -: 1=Mile to moderate sensory loss (patient feels pin prick but is less sharp on affected side). -: 2=Severe or total sensory loss. 8. Responses: 1 9. Best Language: Instruct patient to: -: a. "Describe what you see in this picture." -: b. "Name the items in this picture." -: c. "Read these sentences." -: 0=No aphasia, normal -: 1=Mild to moderate aphasia. -: 2=Severe aphasia -: 3=Mute, global aphasia, no usable speech or auditory comprehension. 9. Responses: 0 10. Articulation, Dysarthia: Instruct patient to: -: "Read these words" or "Repeat these words" -: 0=Normal -: 1=Mild to moderate; patient may slur some words but can be understood without difficulty. -: 2=Severe; patients speech so slurred as to be unintelligible in the absence of dysphasia. -: UN=Intubated or other physical barrier, explain in comments. 10. Responses: 0 11. Extinction or inattention: 0=No abnormality -: 1= Visual, tactile, auditory, spatial, or personal inattention or extinction to bilateral simulation in one or the sensory modalities. -: 2=Profound donald-inattention or donald-inattention to more than one modality; does not recognize own hand. 11. Responses: 0 Total Score: 10
[2017-09-05] MEDS ORDERED: ASPIRIN 325 MG TABLET PO ONE (09:40)
[2017-09-05 09:53] LABS: APPEARANCE,URINE CLEAR; BILIRUBIN,URINE NEGATIVE (NEGATIVE); COLOR,URINE STRAW; GLUCOSE, URINE NEGATIVE (NEGATIVE); KETONES,URINE NEGATIVE (NEGATIVE); LEUKOCYTE ESTERASE,URINE NEGATIVE (NEGATIVE); NITRITE,URINE NEGATIVE (NEGATIVE); PROTEIN,URINE NEGATIVE (NEGATIVE); URINE SPECIFIC GRAVITY 1.004; UROBILINOGEN,URINE NEGATIVE mg/dL (<2.0)
[2017-09-05] MEDS: ENOXAPARIN SODIUM INJ 100 MG/1 ML DISP.SYRIN SUBCUT SCH ×2 (09:54→21:58)
[2017-09-05] MEDS ORDERED: ONDANSETRON HCL INJ/PF 4 MG/2 ML SDV IV PRN (10:49)
[2017-09-05] MEDS ORDERED: MAGNESIUM HYDROXIDE SUSP 30 ML UDCUP PO PRN (10:49)
[2017-09-05] MEDS ORDERED: IPRATROPIUM/ALBUTEROL 0.5-2.5 MG/3 ML AMPUL NEB PRN (10:49)
[2017-09-05] MEDS ORDERED: PROMETHAZINE HCL INJ 25 MG/1 ML VIAL IV PRN (10:49)
[2017-09-05] MEDS ORDERED: HYDRALAZINE HCL INJ/PF 20 MG/1 ML SDV IV PRN (10:56)
[2017-09-05] MEDS ORDERED: TAMSULOSIN HCL 0.4 MG CAP.SR.24H PO SCH (12:00)
--- NOTE | 2017-09-05 12:35 | RADIOLOGY REPORT (SQ) ---
EXAM DESCRIPTION: MRI HEAD COMBO; MRA HEAD WITHOUT COMPLETED DATE/TIME: 09/05/2017 12:09 pm; 09/05/2017 12:08 pm REASON FOR STUDY: right-sided weakness and numbness COMPARISON: CT brain 05/15/2011, 07/24/2016, 09/05/2017 TECHNIQUE: Multiplanar imaging includes noncontrasted T1, T2, FLAIR, diffusion with ADC map and post gadolinium contrast T1 sequences. Images stored on PACS. [place] MRA exam was performed, with 3D [id number] acquisition and maximum intensity pro jected images. Source data and re- projected images reviewed. CONTRAST TYPE AND DOSE: 15 mL Multihance. RENAL FUNCTION: GFR > 60. LIMITATIONS: Motion artifact FINDINGS: ANATOMY: No developmental anomalies. Normal vascular flow voids. Pituitary fossa normal. CSF SPACES: Normal in size and contour. No hemorrhage. CEREBRUM and CEREBELLUM: Diffusion-weighted images are positive for acute infarcts in the left middle cerebellar peduncle, left occipital cortex and subcortical white matter, left temporal deep white ma tter, left posterior limb internal capsule/posterior thalamus, left caudate, and left frontal and tem poroparietal cortex. Tiny foci of altered diffusion are also seen in the right temporal deep white m atter, and along the right lateral basal ganglia. Multifocal distribution suggests embolic disease. No acute intracranial hemorrhage. No mass effect or midline shift. Chronic appearing bilateral cerebellar infarcts are present. Old right posterior frontal/parietal MC A distribution infarct with encephalomalacia high over the posterior frontal/parietal convexity. Internal auditory canals, cerebellopontine angles, mastoids normal. No enhancing lesions. DIFFUSION IMAGING: Positive as above ORBITS: No masses. Globes normal. PARANASAL SINUSES: No fluid levels. Mucosa normal. [place] MRA: Motion artifact. No gross [place] stenosis. IMPRESSION: Multiple acute small infarcts throughout the bilateral cerebral hemispheres and left cer ebellum worrisome for embolic disease. These are nonhemorrhagic Old infarcts in the right frontoparietal convexity and bilateral cerebellar hemispheres No gross [place] stenosis EVIDENCE OF ACUTE STROKE: NO. TECHNICAL DOCUMENTATION: JOB ID: [id number] [employer]- All Rights Reserved Reading location - IP/workstation name: [email or web address]
--- NOTE | 2017-09-05 12:35 | RADIOLOGY REPORT (SQ) ---
EXAM DESCRIPTION: MRI HEAD COMBO; MRA HEAD WITHOUT COMPLETED DATE/TIME: 09/05/2017 12:09 pm; 09/05/2017 12:08 pm REASON FOR STUDY: right-sided weakness and numbness COMPARISON: CT brain 05/15/2011, 07/24/2016, 09/05/2017 TECHNIQUE: Multiplanar imaging includes noncontrasted T1, T2, FLAIR, diffusion with ADC map and post gadolinium contrast T1 sequences. Images stored on PACS. [place] MRA exam was performed, with 3D [id number] acquisition and maximum intensity pro jected images. Source data and re- projected images reviewed. CONTRAST TYPE AND DOSE: 15 mL Multihance. RENAL FUNCTION: GFR > 60. LIMITATIONS: Motion artifact FINDINGS: ANATOMY: No developmental anomalies. Normal vascular flow voids. Pituitary fossa normal. CSF SPACES: Normal in size and contour. No hemorrhage. CEREBRUM and CEREBELLUM: Diffusion-weighted images are positive for acute infarcts in the left middle cerebellar peduncle, left occipital cortex and subcortical white matter, left temporal deep white ma tter, left posterior limb internal capsule/posterior thalamus, left caudate, and left frontal and tem poroparietal cortex. Tiny foci of altered diffusion are also seen in the right temporal deep white m atter, and along the right lateral basal ganglia. Multifocal distribution suggests embolic disease. No acute intracranial hemorrhage. No mass effect or midline shift. Chronic appearing bilateral cerebellar infarcts are present. Old right posterior frontal/parietal MC A distribution infarct with encephalomalacia high over the posterior frontal/parietal convexity. Internal auditory canals, cerebellopontine angles, mastoids normal. No enhancing lesions. DIFFUSION IMAGING: Positive as above ORBITS: No masses. Globes normal. PARANASAL SINUSES: No fluid levels. Mucosa normal. [place] MRA: Motion artifact. No gross [place] stenosis. IMPRESSION: Multiple acute small infarcts throughout the bilateral cerebral hemispheres and left cer ebellum worrisome for embolic disease. These are nonhemorrhagic Old infarcts in the right frontoparietal convexity and bilateral cerebellar hemispheres No gross [place] stenosis EVIDENCE OF ACUTE STROKE: NO. TECHNICAL DOCUMENTATION: JOB ID: [id number] [employer]- All Rights Reserved Reading location - IP/workstation name: [email or web address]
--- NOTE | 2017-09-05 12:36 | RADIOLOGY REPORT (SQ) ---
EXAM DESCRIPTION: MRA NECK WITHOUT COMPLETED DATE/TIME: 09/05/2017 12:08 pm REASON FOR STUDY: right-sided weakness and numbness COMPARISON: MRI brain and MRA [place], CT brain today TECHNIQUE: Axial 2-D volume acquisition imaging through the extracranial carotid and vertebral arter ies with reformatting using 3-D MIPS. LIMITATIONS: Motion artifact FINDINGS: RIGHT CAROTID ARTERY: No stenosis or occlusive changes. Limited visualization of the orig in. LEFT CAROTID ARTERY: No stenosis or occlusive changes. Limited visualization of the origin. VERTEBRAL ARTERY: The extracranial portions of the vertebral basilar system are preserved without mimi nosis. No aneurysmal dilatation or dissection is seen. OTHER: No other significant finding. IMPRESSION: Motion artifact. No vertebral artery or cervical carotid artery gross evidence of steno sis COMMENT: Quality ID #[id number]: Measurements of distal internal carotid diameter were used as the denomin ator for stenosis measurement. TECHNICAL DOCUMENTATION: JOB ID: [id number] [employer]- All Rights Reserved Reading location - IP/workstation name: [email or web address]
[2017-09-05] MEDS: METOPROLOL SUCCINATE 50 MG TAB.SR.24H PO SCH (13:08)
[2017-09-05] MEDS: DUTASTERIDE 0.5 MG CAPSULE PO SCH (13:10)
--- NOTE | 2017-09-05 14:09 | HISTORY AND PHYSICAL E ---
History and Physical NAME: JUAN MANCIA : 1950 AGE: 67Y ADMITTED: 09/05/2017 ROOM: ED17 HISTORY OF PRESENT ILLNESS: The patient is a 67-year-old male who has a past medical history of stroke, atrial fibrillation. The patient had a seizure and a stroke. He is Ukrainian speaking and he had a stroke with right-sided weakness and today, brought by his daughter because the patient is feeling more weakness on the right side. He did not complain of any fever, chills, headache, or dizziness. Last admission, the patient was found to have a stroke and he had a CT scan of the head, which did not show any acute stroke. He had a carotid sonogram done in 2013. An ultrasound in 2011, did showed mild carotid artery stenosis. There is very minimal stenosis, less than 50%. His vital signs in the emergency room: Blood pressure is 157/90 and heart rate 102. The patient is supposed to be on Coumadin and he was discharged on Coumadin last time. Last year, he was discharged on Coumadin. His INR here is 1.1. According to his daughter, he is taking warfarin and blood pressure medications. REVIEW OF SYSTEMS: Twelve systems were reviewed and negative except for history of present illness. PAST MEDICAL HISTORY: 1. Atrial fibrillation. 2. Hypertension. 3. CVA with residual right-sided weakness. PAST SURGICAL HISTORY: None. SOCIAL HISTORY: Former smoker, quit 20 years ago. No alcohol use. He lives with his daughter and grandson. MEDICATIONS: His home medications from the record are: 1. Warfarin 3 mg alternating with 2.5 mg. 2. Flomax 0.8 mg. 3. Simvastatin 40 mg. 4. Toprol XL 50 mg daily. 5. Avodart daily 0.5 mg daily. ALLERGIES: He is not allergic to any medication. FAMILY HISTORY: No family history of stroke or high blood pressure. PHYSICAL EXAMINATION: GENERAL: The patient is lying in bed, comfortable, not in distress. VITAL SIGNS: Blood pressure is 157/90, heart rate is 102, afebrile, saturation 96%. HEENT: Normocephalic, atraumatic. Pupils are round and reactive to light and accommodation bilaterally. Extraocular movements intact. Ears: Tympanic membranes intact bilaterally. No discharge from the ears. Mucous membranes are moist. Nose: No tenderness over sinuses. No discharge from the nose. NECK: Supple. No increased JVD. No thyromegaly. No lymphadenopathy. CARDIOVASCULAR: Normal S1 and S2. Regular rate and rhythm. No murmur. No gallop. RESPIRATORY: Chest wall - no deformity. Good air entry bilaterally. No wheezing. No crackles. ABDOMEN: No scarring. No organomegaly. Bowel sounds active. No rebound. No guarding. MUSCULOSKELETAL: No edema. No joint deformity. NEUROLOGIC: Patient awake, alert, oriented to time, place, and person. Cranial nerves from 2-12 are grossly intact. Left facial droop, right-sided weakness. Sensation intact bilaterally. HEMATOLOGIC/LYMPHOCYTIC: No anemia. No easy bruising. SKIN: There is no rash. EXTREMITIES: Peripheral pulses palpable bilaterally. DIAGNOSTIC DATA: Labs: White blood count 13.3, hemoglobin is 17. Sodium 140, potassium 3.9. INR is 1.1. CT scan of the head did not show any acute stroke; it showed the chronic changes from previous stroke. ASSESSMENT AND PLAN: 1. CVA WITH SLIGHT RESIDUAL WEAKNESS, PROBABLY ACUTE STROKE. 2. ATRIAL FIBRILLATION, ON ANTICOAGULATION AND TOPROL XL. RATE CONTROLLED. INR IS SUBTHERAPEUTIC. 3. HYPERLIPIDEMIA. 4. HYPERTENSION. 5. BENIGN PROSTATIC HYPERPLASIA. 6. DEBILITY. PLAN: 1. We will admit the patient to MICU. 2. We will start him on Lovenox full dose and we will increase his Coumadin to 3 mg p.o. daily. He is taking 3 mg, alternating with 2.5 mg. We will increase to 3 mg daily. I will check INR daily, and bridging with Lovenox full dose. We will also add aspirin 325 mg p.o. daily; this can be decreased to 81 mg daily when INR is therapeutic. 3. Statin. We will continue Lipitor 40 mg daily and will add Toprol XL 50 mg daily and keep his systolic blood pressure around 150. Today, his blood pressure when he came in was 150/90. He has *------* p.r.n. for systolic more than 180. 4. Speech Therapy, Physical Therapy, and Women'S Studies Lecturer consult. 5. Cardiac enzymes, 3 sets of cardiac enzymes. 6. GI prophylaxis. 7. DVT prophylaxis. He is on full-dose Lovenox as well as Coumadin. CODE STATUS: FULL CODE. DISPOSITION: Probably rehab. DICTATING PHYSICIAN: TEA KAHN M.D. [id number] PHY#: [id number] ID: [id number] JOB#: [id number] ACCT: [id number] cc: > MTDD
--- NOTE | 2017-09-05 15:25 | EKG REPORT ---
SEVERITY:- ABNORMAL ECG - ATRIAL FIBRILLATION, V-RATE 87-139 REPOL ABNRM SUGGESTS ISCHEMIA, DIFFUSE LEADS : Confirmed by: Rashaun Billingsley MD 05-Sep-2017 15:24:25
[2017-09-05] MEDS ORDERED: DOCUSATE SODIUM 100 MG/10 ML UDC PO SCH (18:00)
[2017-09-05] MEDS ORDERED: INFLUENZA ADLT QUAD (36MOS+) 2017-18 VAC 0.5 ML SYR IM PRN (18:28)
[2017-09-05] MEDS: DOCUSATE SODIUM 100 MG CAPSULE PO SCH (21:57)
[2017-09-05] MEDS: LANSOPRAZOLE 30 MG TAB.RAP.DR PO SCH (21:57)
[2017-09-05] MEDS: ATORVASTATIN CALCIUM 40 MG TABLET PO SCH (21:57)
[2017-09-05] MEDS ORDERED: ATORVASTATIN CALCIUM 20 MG TABLET PO SCH (22:00)
[2017-09-05] MEDS ORDERED: WARFARIN SODIUM 3 MG TABLET PO SCH (22:00)
[2017-09-05] MEDS: OXYCODONE-ACETAMINOPHEN 5-325 MG TABLET PO PRN (22:11)
[2017-09-05] MEDS: ZOLPIDEM TARTRATE 5 MG TABLET PO SCH (23:48)
[2017-09-06] MEDS ORDERED: NORMAL SALINE 1000 ML 1,000 ML IV ONE (03:30)
[2017-09-06] MEDS: LANSOPRAZOLE 30 MG TAB.RAP.DR PO SCH ×2 (06:16→17:04)
[2017-09-06 06:43] LABS: HEMATOCRIT 42.7 % (37.9-51.0); MEAN CORPUSCULAR HEMOGLOBIN 30.8 pg (27.0-33.4); MEAN CORPUSCULAR HGB CONC 34.3 g/dL (32.0-36.0); MEAN CORPUSCULAR VOLUME 90 fl (80-97); PLATELET COUNT 220 10^3/uL (150-450); RED BLOOD COUNT 4.75 10^6/uL (4.35-5.55); RED CELL DISTRIBUTION WIDTH 13.7 % (11.5-14.0); WHITE BLOOD COUNT 8.7 10^3/uL (4.0-10.5)
[2017-09-06 06:44] LABS: HEMOGLOBIN 14.6 g/dL (13.5-17.0)
[2017-09-06 06:50] LABS: INTERNATIONAL RATION (INR) 1.17; PROTHROMBIN TIME 15.7 SEC (11.4-15.4)
[2017-09-06 06:51] LABS: PARTIAL THROMBOPLASTIN TIME 45.1 SEC (23.5-35.8)
[2017-09-06 07:00] LABS: ALANINE AMINOTRANSFERASE 30 U/L (21-72); ALBUMIN 3.2 g/dL (3.5-5.0); ALKALINE PHOSPHATASE 81 U/L (38-126); ANION GAP 8 (5-19); ASPARTATE AMINO TRANSFERASE 20 U/L (17-59); BILIRUBIN,DIRECT 0.1 mg/dL (0.0-0.4); BILIRUBIN,TOTAL 1.2 mg/dL (0.2-1.3); BLOOD UREA NITROGEN 9 mg/dL (7-20); CALCIUM 8.5 mg/dL (8.4-10.2); CARBON DIOXIDE 27 mmol/L (22-30); CHLORIDE 104 mmol/L (98-107); CHOLESTEROL 124.79 mg/dL (0-200); GLUCOSE 95 mg/dL (75-110); PHOSPHORUS 3.1 mg/dL (2.5-4.5); POTASSIUM 3.7 mmol/L (3.6-5.0); SODIUM 138.7 mmol/L (137-145); TOTAL PROTEIN 5.7 g/dL (6.3-8.2); TRIGLYCERIDES 84 mg/dL (<150)
[2017-09-06 07:11] LABS: DIRECT LDL 91 mg/dL (<100)
[2017-09-06 07:16] LABS: FREE T3 4.84 pg/mL (2.77-5.27); FREE T4 (FREE THYROXINE) 1.69 ng/dL (0.78-2.19)
[2017-09-06 07:29] LABS: THYROID STIMULATING HORMONE 2.92 uIU/mL (0.47-4.68)
[2017-09-06] MEDS: DOCUSATE SODIUM 100 MG CAPSULE PO SCH ×2 (09:08→17:04)
[2017-09-06] MEDS: ASPIRIN 325 MG TABLET PO SCH (09:08)
[2017-09-06] MEDS: METOPROLOL SUCCINATE 50 MG TAB.SR.24H PO SCH (09:08)
[2017-09-06] MEDS: ENOXAPARIN SODIUM INJ 100 MG/1 ML DISP.SYRIN SUBCUT SCH (09:09)
[2017-09-06] MEDS: DUTASTERIDE 0.5 MG CAPSULE PO SCH (09:09)
[2017-09-06] MEDS ORDERED: RIVAROXABAN 10 MG TABLET PO ONE (09:10)
[2017-09-06] MEDS ORDERED: ONDANSETRON HCL INJ/PF 4 MG/2 ML SDV IV PRN (09:30)
--- NOTE | 2017-09-06 10:05 | EKG REPORT ---
SEVERITY:- ABNORMAL ECG - ATRIAL FIBRILLATION, V-RATE 58-117 REPOL ABNRM SUGGESTS ISCHEMIA, LATERAL LEADS : Confirmed by: Roselyn Collier 06-Sep-2017 10:04:57
--- NOTE | 2017-09-06 16:39 | PDOC PROGRESS REPORT ---
Subjective Progress Note for:: 09/06/17 Subjective:: JUAN MANCIA is a 67 year old male brought to the hospital for increasing right-sided weakness. 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 Patient has history of CVA and atrial fibrillation on Coumadin. Upon arrival to [facility], INR was subtherapeutic at 1.1. Patient seen this morning during rounds with the use of a combo welder. He has no complaints this morning, only states that his right arm is very weak. Reason For Visit: CVA Physical Exam Vital Signs: Temp Pulse Resp BP Pulse Ox 97.9 F 101 H 18 152/95 H 95 09/06/17 11:51 09/06/17 14:57 09/06/17 14:57 09/06/17 12:00 09/06/17 14:57 Intake & Output 09/05/17 09/06/17 09/07/17 06:59 06:59 06:59 Intake Total 1100 222 Output Total 300 Balance 800 222 Weight 87.6 kg General appearance: PRESENT: no acute distress Head exam: PRESENT: atraumatic Eye exam: PRESENT: conjunctiva pink, other - R deviated gaze Mouth exam: PRESENT: moist Teeth exam: PRESENT: poor dentation Neck exam: PRESENT: full ROM Respiratory exam: PRESENT: clear to auscultation stew, symmetrical, unlabored Cardiovascular exam: PRESENT: +S1, +S2 Pulses: PRESENT: normal radial pulses, normal dorsalis pedis pul GI/Abdominal exam: PRESENT: normal bowel sounds, soft. ABSENT: tenderness Rectal exam: PRESENT: deferred Extremities exam: PRESENT: other - 2/5 RUE & RLE strength -very poor fine motor skills. 4/5 LUE & LLE strength. Musculoskeletal exam: PRESENT: other - Patient is not ambulatory prior to admission, the patient was able to get around in a wheelchair. ABSENT: ambulatory Neurological exam: PRESENT: alert, awake, oriented to person, oriented to place , oriented to time, oriented to situation, abnormal gait - Wheelchair-bound Results Laboratory Results: 09/06/17 06:28 09/06/17 06:28 09/06/17 09/06/17 09/06/17 06:28 06:28 06:28 WBC 8.7 RBC 4.75 Hgb 14.6 D Hct 42.7 MCV 90 MCH 30.8 MCHC 34.3 RDW 13.7 Plt Count 220 Sodium 138.7 Potassium 3.7 Chloride 104 Carbon Dioxide 27 Anion Gap 8 BUN 9 Creatinine 0.52 Est GFR ( Amer) > 60 Est GFR (Non-Af Amer) > 60 Glucose 95 Calcium 8.5 Phosphorus 3.1 Magnesium 1.8 Total Bilirubin 1.2 AST 20 ALT 30 Alkaline Phosphatase 81 Ammonia 16.7 Total Protein 5.7 L Albumin 3.2 L Triglycerides 84 Cholesterol 124.79 LDL Cholesterol Direct 91 VLDL Cholesterol 17.0 HDL Cholesterol 25 L TSH Free T4 Free T3 pg/mL 09/06/17 06:28 WBC RBC Hgb Hct MCV MCH MCHC RDW Plt Count Sodium Potassium Chloride Carbon Dioxide Anion Gap BUN Creatinine Est GFR ( Amer) Est GFR (Non-Af Amer) Glucose Calcium Phosphorus Magnesium Total Bilirubin AST ALT Alkaline Phosphatase Ammonia Total Protein Albumin Triglycerides Cholesterol LDL Cholesterol Direct VLDL Cholesterol HDL Cholesterol TSH 2.92 Free T4 1.69 Free T3 pg/mL 4.84 09/05/17 09/05/17 09/05/17 14:24 14:24 20:27 Creatine Kinase 78 70 Troponin I 0.109 09/05/17 09/06/17 09/06/17 20:27 02:35 02:35 Creatine Kinase 58 Troponin I 0.092 0.104 Impressions: Chest X-Ray 09/05/17 00:00 IMPRESSION: Low lung volume. Brain MRI with MRA 09/05/17 09:40 IMPRESSION: Multiple acute small infarcts throughout the bilateral cerebral hemispheres and left cerebellum worrisome for embolic disease. These are nonhemorrhagic Old infarcts in the right frontoparietal convexity and bilateral cerebellar hemispheres No gross [place] stenosis EVIDENCE OF ACUTE STROKE: NO. Head MRI 09/05/17 09:40 IMPRESSION: Multiple acute small infarcts throughout the bilateral cerebral hemispheres and left cerebellum worrisome for embolic disease. These are nonhemorrhagic Old infarcts in the right frontoparietal convexity and bilateral cerebellar hemispheres No gross [place] stenosis EVIDENCE OF ACUTE STROKE: NO. Neck MRA 09/05/17 09:40 IMPRESSION: Motion artifact. 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 CVA likely secondary to subtherapeutic anticoagulation therapy. Patient has a history of atrial fibrillation on Coumadin. Initial INR 1.1. Echocardiogram done today to assess for thrombus, although no plans to pursue SOPHIE. 2011 carotid Doppler showed mild carotid artery stenosis, less than 50%. Discontinue Coumadin and Lovenox. Initiate Xarelto. SBP goal less than 180. Resume home antihypertensives, Toprol-XL. As needed hydralazine for SBP greater than 180 Given the debilitating nature of this second CVA, patient will likely require acute rehab following discharge from [facility]. Appreciate discharge planning's assistance in finding placement. (2) A-fib Qualifiers: Atrial fibrillation type: chronic Qualified Code(s): I48.2 - Chronic atrial fibrillation Is this a current diagnosis for this admission?: Yes Plan: Currently rate controlled. Will initiate anticoagulation therapy using Xarelto. Discontinue Coumadin. (3) Hypertension Qualifiers: Hypertension type: essential hypertension Qualified Code(s): I10 - Essential (primary) hypertension Is this a current diagnosis for this admission?: Yes Plan: Continue home dose Toprol-XL. Patient's blood pressure has been adequately controlled for the last 24 hours. PRN hydralazine for SBP greater than 180 - Time Time Spent with patient: 15-24 minutes Medications reviewed and adjusted accordingly: Yes Anticipated discharge: Acute Rehab Within: within 48 hours - Inpatient Certification Based on my medical assessment, after consideration of the patient's comorbidities, presenting symptoms, or acuity I expect that the services needed warrant INPATIENT care.: Yes I certify that my determination is in accordance with my understanding of Medicare's requirements for reasonable and necessary INPATIENT services [42 CFR 412.3e].: Yes Medical Necessity: Risk of Complication if Not Cared For in Hospital Post Hospital Care: D/C [facility] 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, D/C or Transfer Summary - Plan Summary Plan Summary: Discharge to acute rehab. Patient and family are aware of this plan, and they are amendable to it
--- NOTE | 2017-09-06 19:50 | XCELERA REPORT ---
[address] [address] Transthoracic Echocardiogram Report Name: JUAN MANCIA Age: 67 yrs Gender: Male : 1950 Patient Status: Inpatient Patient Location: [address] [place] [address] Study Date: 09/06/2017 09:56 AM Height: 67 in Weight: 193 lb BSA: 2.0 m2 Procedure: A complete two-dimensional transthoracic echocardiogram was performed (2D, M-mode, spectral and color flow Doppler). The study was technically difficult with many images being suboptimal in quality. Reason For Study: CVA Ordering Physician: TEA KAHN Performed By: Laura Gu Interpretation Summary The study was technically difficult with many images being suboptimal in quality. The left ventricular ejection fraction is normal. There is mild to moderate concentric left ventricular hypertrophy. The left ventricle is grossly normal size. Doppler measurements suggest pseudonormalized left ventricular relaxation, which is associated with grade II/IV or mild to moderate diastolic dysfunction Regional wall motion abnormalities cannot be excluded due to limited visualization. The right ventricle is mildly dilated. The right atrium is mildly dilated. There is a trace amount of mitral regurgitation There is no mitral valve stenosis. No aortic regurgitation is present. There is no aortic valve stenosis There is a trace or physiologic amount of tricuspid regurgitation Tricuspid regurgitation jet envelope not well defined to measure RV systolic pressure accurately. The aortic root is not well visualized but is probably normal size. The inferior vena cava was not visualized Minimal pericardial effusion. Consider SOPHIE if clinically indicated. May consider mobile cardiac telemetry monitoring (MCT) for ruling out transient AFIB. MMode/2D Measurements & Calculations RVDd: 3.2 cm LVIDd: 4.5 cm FS: 36.3 % Ao root diam: 3.4 cm IVSd: 1.1 cm LVIDs: 2.8 cm EDV(Teich): 90.3 ml LVPWd: 1.2 cm ESV(Teich): 30.6 ml Ao root area: 8.9 cm2 EF(Teich): 66.1 % Doppler Measurements & Calculations MV E max ani: MV dec slope: Ao V2 max: LV V1 max P.1 cm/sec 90.5 cm/sec 2.6 mmHg MV A max ani: 726.8 cm/sec2 Ao max PG: LV V1 max: 1.5 cm/sec MV dec time: 3.3 mmHg 81.0 cm/sec MV E/A: 88.9 0.19 sec PA V2 max: TR max ani: 68.4 cm/sec 226.0 cm/sec PA max P.9 mmHg TR max P.5 mmHg Left Ventricle The left ventricle is grossly normal size. There is mild to moderate concentric left ventricular hypertrophy. The left ventricular ejection fraction is normal. Doppler measurements suggest pseudonormalized left ventricular relaxation, which is associated with grade II/IV or mild to moderate diastolic dysfunction. Regional wall motion abnormalities cannot be excluded due to limited visualization. Right Ventricle The right ventricle is mildly dilated. Right ventricular function cannot be assessed due to poor image quality. Atria The right atrium is mildly dilated. The left atrium is mildly dilated. Interarterial septum not well visualized and not well dopplered. Cannot comment on ASD/PFO presence. Mitral Valve There is mild mitral leaflet calcification. The mitral valve is not well visualized. There is no mitral valve stenosis. There is a trace amount of mitral regurgitation. Aortic Valve The aortic valve is grossly normal. There is no aortic valve stenosis. No aortic regurgitation is present. Tricuspid Valve The tricuspid valve is not well visualized secondary to technical limitations. There is no tricuspid stenosis. There is a trace or physiologic amount of tricuspid regurgitation. Tricuspid regurgitation jet envelope not well defined to measure RV systolic pressure accurately. Pulmonic Valve The pulmonic valve is not well visualized. Great Vessels The aortic root is not well visualized but is probably normal size. The inferior vena cava was not visualized. Effusions Minimal pericardial effusion. Incidental Findings Consider SOPHIE if clinically indicated. May consider mobile cardiac telemetry monitoring (MCT) for ruling out transient AFIB. : TEA KAHN > Roselyn Collier
[2017-09-06] MEDS: OXYCODONE-ACETAMINOPHEN 5-325 MG TABLET PO PRN (21:21)
[2017-09-06] MEDS: ZOLPIDEM TARTRATE 5 MG TABLET PO SCH (21:21)
[2017-09-06] MEDS: ATORVASTATIN CALCIUM 40 MG TABLET PO SCH (21:22)
[2017-09-07] MEDS: LANSOPRAZOLE 30 MG TAB.RAP.DR PO SCH ×2 (05:36→16:16)
[2017-09-07] MEDS: DUTASTERIDE 0.5 MG CAPSULE PO SCH (10:18)
[2017-09-07] MEDS: ASPIRIN 325 MG TABLET PO SCH (10:18)
[2017-09-07] MEDS: DOCUSATE SODIUM 100 MG CAPSULE PO SCH ×2 (10:18→16:16)
[2017-09-07] MEDS: METOPROLOL SUCCINATE 50 MG TAB.SR.24H PO SCH (10:18)
[2017-09-07] MEDS: RIVAROXABAN 10 MG TABLET PO SCH (16:15)
[2017-09-07] MEDS ORDERED: RIVAROXABAN 15 MG TABLET PO SCH (17:00)
--- NOTE | 2017-09-07 17:57 | PDOC PROGRESS REPORT ---
Subjective Progress Note for:: 09/07/17 Subjective:: JUAN MANCIA is a 67 year old male brought to the hospital for increasing right-sided weakness. 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 Patient has history of CVA and atrial fibrillation on Coumadin. [facility], INR was subtherapeutic at 1.1. Patient seen this morning during rounds with the use of a warp picker. He has no complaints this morning. Patient is currently awaiting placement at acute rehab. Reason For Visit: CVA Physical Exam Vital Signs: Temp Pulse Resp BP Pulse Ox 98.0 F 86 18 164/63 H 98 09/07/17 11:56 09/07/17 12:00 09/07/17 12:00 09/07/17 12:00 09/07/17 12:00 Intake & Output 09/06/17 09/07/17 09/08/17 06:59 06:59 06:59 Intake Total 1100 1719 10 Output Total 300 1900 800 Balance 800 -181 -790 Weight 87.6 kg 90.3 kg General appearance: PRESENT: no acute distress Eye exam: PRESENT: conjunctiva pink, PERRLA, other - R deviated gaze Mouth exam: PRESENT: moist Teeth exam: PRESENT: poor dentation Respiratory exam: PRESENT: clear to auscultation stew, symmetrical, unlabored Cardiovascular exam: PRESENT: +S1, +S2 Pulses: PRESENT: normal radial pulses, +1 pedal pulses bilateral GI/Abdominal exam: PRESENT: normal bowel sounds, soft Rectal exam: PRESENT: deferred Extremities exam: PRESENT: other - 2/5 strength in RUE and RLE. 5/5 strength in LUE and LLE. Poor fine motor coordination in both hands Neurological exam: PRESENT: alert, awake, oriented to person, oriented to place , oriented to time, oriented to situation, ataxia Psychiatric exam: PRESENT: appropriate affect Skin exam: PRESENT: normal color Results Laboratory Results: 09/06/17 06:28 09/06/17 06:28 09/05/17 09/05/17 09/05/17 14:24 14:24 20:27 Creatine Kinase 78 70 Troponin I 0.109 09/05/17 09/06/17 09/06/17 20:27 02:35 02:35 Creatine Kinase 58 Troponin I 0.092 0.104 Impressions: Chest X-Ray 09/05/17 00:00 IMPRESSION: Low lung volume. Brain MRI with MRA 09/05/17 09:40 IMPRESSION: Multiple acute small infarcts throughout the bilateral cerebral hemispheres and left cerebellum worrisome for embolic disease. These are nonhemorrhagic Old infarcts in the right frontoparietal convexity and bilateral cerebellar hemispheres No gross shawnee of Canseco stenosis EVIDENCE OF ACUTE STROKE: NO. Head MRI 09/05/17 09:40 IMPRESSION: Multiple acute small infarcts throughout the bilateral cerebral hemispheres and left cerebellum worrisome for embolic disease. These are nonhemorrhagic Old infarcts in the right frontoparietal convexity and bilateral cerebellar hemispheres No gross sh[place] of Canseco stenosis EVIDENCE OF ACUTE STROKE: NO. Neck MRA 09/05/17 09:40 IMPRESSION: Motion artifact. 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 CVA likely secondary to subtherapeutic anticoagulation therapy. Patient has a history of atrial fibrillation on Coumadin. Initial INR 1.1. Discontinue Coumadin and Lovenox. Initiate Xarelto. Echocardiogram done to assess for thrombus, no evidence of thrombus. 2011 carotid Doppler showed mild carotid artery stenosis, less than 50%. SBP goal less than 180. Continue home antihypertensives, Toprol-XL. As needed hydralazine for SBP greater than 180 Given the debilitating nature of this second CVA, patient requires acute rehab following [facility]. Discharge planning assisting in placement. (2) A-fib Qualifiers: Atrial fibrillation type: chronic Qualified Code(s): I48.2 - Chronic atrial fibrillation Is this a current diagnosis for this admission?: Yes Plan: Currently rate controlled. Will continue anticoagulation therapy using Xarelto. (3) Hypertension Qualifiers: Hypertension type: essential hypertension Qualified Code(s): I10 - Essential (primary) hypertension Is this a current diagnosis for this admission?: Yes Plan: Continue home dose Toprol-XL. Patient's blood pressure has been adequately controlled for the last 24 hours. PRN hydralazine for SBP greater than 180 - Time Time Spent with patient: 15-24 minutes Anticipated discharge: Home Within: within 24 hours - Inpatient Certification Based on my medical assessment, after consideration of the patient's comorbidities, presenting symptoms, or acuity I expect that the services needed warrant INPATIENT care.: Yes I certify that my determination is in accordance with my understanding of Medicare's requirements for reasonable and necessary INPATIENT services [42 CFR 412.3e].: Yes Medical Necessity: Risk of Complication if Not Cared For in Hospital - Plan Summary Plan Summary: Discharge from [facility] to acute rehab
[2017-09-07] MEDS: ZOLPIDEM TARTRATE 5 MG TABLET PO SCH (21:09)
[2017-09-07] MEDS: ATORVASTATIN CALCIUM 40 MG TABLET PO SCH (21:09)
[2017-09-08] MEDS: LANSOPRAZOLE 30 MG TAB.RAP.DR PO SCH ×2 (05:18→17:59)
[2017-09-08] MEDS: METOPROLOL SUCCINATE 50 MG TAB.SR.24H PO SCH (09:18)
[2017-09-08] MEDS: ASPIRIN 325 MG TABLET PO SCH (09:18)
[2017-09-08] MEDS: DOCUSATE SODIUM 100 MG CAPSULE PO SCH ×2 (09:18→17:59)
[2017-09-08] MEDS: DUTASTERIDE 0.5 MG CAPSULE PO SCH (09:18)
--- NOTE | 2017-09-08 16:46 | PDOC PROGRESS REPORT ---
Subjective Progress Note for:: 09/08/17 Subjective:: JUAN MANCIA is a 67 year old male brought to the hospital for increasing right-sided weakness. 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 Patient has history of CVA and atrial fibrillation on Coumadin. Upon arrival to [facility], INR was subtherapeutic at 1.1. Patient seen this morning during rounds with the use of a learning and development specialist. He verbalized his frustration of not being able to walk to the bathroom, but he otherwise has no complaints. Patient is currently awaiting placement at acute rehab. Reason For Visit: CVA Physical Exam Vital Signs: Temp Pulse Resp BP Pulse Ox 98.3 F 100 16 142/103 H 94 09/08/17 12:11 09/08/17 14:00 09/08/17 12:11 09/08/17 12:11 09/08/17 12:11 Intake & Output 09/07/17 09/08/17 09/09/17 06:59 06:59 06:59 Intake Total 1719 520 365 Output Total 1900 1497 Balance -181 -977 365 Weight 90.3 kg 87.6 kg Results Laboratory Results: 09/06/17 06:28 09/06/17 06:28 09/05/17 09/05/17 09/05/17 14:24 14:24 20:27 Creatine Kinase 78 70 Troponin I 0.109 09/05/17 09/06/17 09/06/17 20:27 02:35 02:35 Creatine Kinase 58 Troponin I 0.092 0.104 Impressions: Chest X-Ray 09/05/17 00:00 IMPRESSION: Low lung volume. Brain MRI with MRA 09/05/17 09:40 IMPRESSION: Multiple acute small infarcts throughout the bilateral cerebral hemispheres and left cerebellum worrisome for embolic disease. These are nonhemorrhagic Old infarcts in the right frontoparietal convexity and bilateral cerebellar hemispheres No gross teller of Canseco stenosis EVIDENCE OF ACUTE STROKE: NO. Head MRI 09/05/17 09:40 IMPRESSION: Multiple acute small infarcts throughout the bilateral cerebral hemispheres and left cerebellum worrisome for embolic disease. These are nonhemorrhagic Old infarcts in the right frontoparietal convexity and bilateral cerebellar hemispheres No gross teller of Canseco stenosis EVIDENCE OF ACUTE STROKE: NO. Neck MRA 09/05/17 09:40 IMPRESSION: Motion artifact. 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 CVA likely secondary to subtherapeutic anticoagulation therapy. Patient has a history of atrial fibrillation on Coumadin. Initial INR 1.1. Discontinue Coumadin and Lovenox. Continue Xarelto. Echocardiogram done to assess for thrombus, no evidence of thrombus. 2011 carotid Doppler showed mild carotid artery stenosis, less than 50%. SBP goal less than 180. Continue home antihypertensives, Toprol-XL. As needed hydralazine for SBP greater than 180 Given the debilitating nature of this second CVA, patient requires acute rehab following discharge from [facility]. Discharge planning assisting in placement. (2) A-fib Qualifiers: Atrial fibrillation type: chronic Qualified Code(s): I48.2 - Chronic atrial fibrillation Is this a current diagnosis for this admission?: Yes Plan: Currently rate controlled. Will continue anticoagulation therapy using Xarelto. (3) Hypertension Qualifiers: Hypertension type: essential hypertension Qualified Code(s): I10 - Essential (primary) hypertension Is this a current diagnosis for this admission?: Yes Plan: Continue home dose Toprol-XL. Patient's blood pressure has been adequately controlled for the last 24 hours. PRN hydralazine for SBP greater than 180 - Time Time Spent with patient: 15-24 minutes Anticipated discharge: Acute Rehab - Inpatient Certification Based on my medical assessment, after consideration of the patient's comorbidities, presenting symptoms, or acuity I expect that the services needed warrant INPATIENT care.: Yes I certify that my determination is in accordance with my understanding of Medicare's requirements for reasonable and necessary INPATIENT services [42 CFR 412.3e].: Yes Medical Necessity: Risk of Complication if Not Cared For in Hospital - Plan Summary Plan Summary: Discharge from [facility] to acute rehab
[2017-09-08] MEDS: RIVAROXABAN 10 MG TABLET PO SCH (17:59)
[2017-09-08] MEDS: ZOLPIDEM TARTRATE 5 MG TABLET PO SCH (21:52)
[2017-09-08] MEDS: ATORVASTATIN CALCIUM 40 MG TABLET PO SCH (21:52)
[2017-09-09] MEDS: LANSOPRAZOLE 30 MG TAB.RAP.DR PO SCH ×2 (05:41→17:25)
[2017-09-09] MEDS: DOCUSATE SODIUM 100 MG CAPSULE PO SCH ×2 (10:25→17:25)
[2017-09-09] MEDS: ASPIRIN 325 MG TABLET PO SCH (10:25)
[2017-09-09] MEDS: METOPROLOL SUCCINATE 50 MG TAB.SR.24H PO SCH (10:27)
[2017-09-09] MEDS: DUTASTERIDE 0.5 MG CAPSULE PO SCH (10:27)
[2017-09-09] MEDS: OXYCODONE-ACETAMINOPHEN 5-325 MG TABLET PO PRN (13:23)
--- NOTE | 2017-09-09 15:43 | PDOC PROGRESS REPORT ---
Subjective Progress Note for:: 09/09/17 Subjective:: JUAN MANCIA is a 67 year old male brought to the hospital for increasing right-sided weakness. 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 Patient has history of CVA and atrial fibrillation on Coumadin. Upon arrival to [facility], INR was subtherapeutic at 1.1. Patient is currently awaiting placement at acute rehab. Reason For Visit: CVA Physical Exam Vital Signs: Temp Pulse Resp BP Pulse Ox 98.6 F 90 18 133/85 H 98 09/09/17 12:18 09/09/17 15:31 09/09/17 15:31 09/09/17 15:31 09/09/17 15:31 Intake & Output 09/08/17 09/09/17 09/10/17 06:59 06:59 06:59 Intake Total 520 565 0 Output Total 1497 550 Balance -977 15 0 Weight 87.6 kg 86.3 kg General appearance: PRESENT: no acute distress Head exam: PRESENT: atraumatic Eye exam: PRESENT: conjunctiva pink, PERRLA Teeth exam: PRESENT: poor dentation Neck exam: PRESENT: full ROM Respiratory exam: PRESENT: clear to auscultation stew, symmetrical, unlabored Cardiovascular exam: PRESENT: +S1, +S2 Pulses: PRESENT: other - doppler b/l pedal pulses Vascular exam: PRESENT: normal capillary refill GI/Abdominal exam: PRESENT: normal bowel sounds, soft Rectal exam: PRESENT: deferred Extremities exam: PRESENT: other - 3/5 strength in RUE and RLE 5/5 strength in LUE and LLE. Poor fine motor control in R hand. Musculoskeletal exam: PRESENT: other - 3/5 strength in RUE and RLE 5/5 strength in LUE and LLE. Poor fine motor control in R hand. Neurological exam: PRESENT: alert, awake, oriented to person, oriented to place , oriented to time, oriented to situation Psychiatric exam: PRESENT: appropriate affect Skin exam: PRESENT: normal color Results Laboratory Results: 09/06/17 06:28 09/06/17 06:28 09/05/17 09/05/17 09/05/17 14:24 14:24 20:27 Creatine Kinase 78 70 Troponin I 0.109 09/05/17 09/06/1718 20:27 02:35 02:35 Creatine Kinase 58 Troponin I 0.092 0.104 Impressions: Chest X-Ray 09/05/17 00:00 IMPRESSION: Low lung volume. Brain MRI with MRA 09/05/17 09:40 IMPRESSION: Multiple acute small infarcts throughout the bilateral cerebral hemispheres and left cerebellum worrisome for embolic disease. These are nonhemorrhagic Old infarcts in the right frontoparietal convexity and bilateral cerebellar hemispheres No gross nez perce of Canseco stenosis EVIDENCE OF ACUTE STROKE: NO. Head MRI 09/05/17 09:40 IMPRESSION: Multiple acute small infarcts throughout the bilateral cerebral hemispheres and left cerebellum worrisome for embolic disease. These are nonhemorrhagic Old infarcts in the right frontoparietal convexity and bilateral cerebellar hemispheres No gross nez perce of Canseco stenosis EVIDENCE OF ACUTE STROKE: NO. Neck MRA 09/05/17 09:40 IMPRESSION: Motion artifact. 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 CVA likely secondary to subtherapeutic anticoagulation therapy. Patient has a history of atrial fibrillation on Coumadin. Initial INR 1.1. Discontinue Coumadin and Lovenox. Continue Xarelto. Echocardiogram done to assess for thrombus, no evidence of thrombus. 2011 carotid Doppler showed mild carotid artery stenosis, less than 50%. SBP goal less than 180. Continue home antihypertensives, Toprol-XL. As needed hydralazine for SBP greater than 180 MENDS exam Q SHIFT Given the debilitating nature of this second CVA, patient requires acute rehab following discharge from [facility]. Discharge planning assisting in placement. (2) A-fib Qualifiers: Atrial fibrillation type: chronic Qualified Code(s): I48.2 - Chronic atrial fibrillation Is this a current diagnosis for this admission?: Yes Plan: Currently rate controlled. Will continue anticoagulation therapy using Xarelto. (3) Hypertension Qualifiers: Hypertension type: essential hypertension Qualified Code(s): I10 - Essential (primary) hypertension Is this a current diagnosis for this admission?: Yes Plan: Continue home dose Toprol-XL. Patient's blood pressure has been adequately controlled for the last 24 hours. PRN hydralazine for SBP greater than 180 - Time Time Spent with patient: 15-24 minutes Medications reviewed and adjusted accordingly: Yes Anticipated discharge: Acute Rehab - Inpatient Certification Based on my medical assessment, after consideration of the patient's comorbidities, presenting symptoms, or acuity I expect that the services needed warrant INPATIENT care.: Yes I certify that my determination is in accordance with my understanding of Medicare's requirements for reasonable and necessary INPATIENT services [42 CFR 412.3e].: Yes Medical Necessity: Risk of Complication if Not Cared For in Hospital - Plan Summary Plan Summary: Discharge to acute rehab
[2017-09-09] MEDS: RIVAROXABAN 10 MG TABLET PO SCH (17:25)
[2017-09-09] MEDS: ATORVASTATIN CALCIUM 40 MG TABLET PO SCH (21:36)
[2017-09-09] MEDS: ZOLPIDEM TARTRATE 5 MG TABLET PO SCH (21:37)
[2017-09-10] MEDS: LANSOPRAZOLE 30 MG TAB.RAP.DR PO SCH ×2 (05:37→16:15)
[2017-09-10] MEDS: DOCUSATE SODIUM 100 MG CAPSULE PO SCH ×2 (09:32→17:14)
[2017-09-10] MEDS: DUTASTERIDE 0.5 MG CAPSULE PO SCH (09:32)
[2017-09-10] MEDS: ASPIRIN 325 MG TABLET PO SCH (09:32)
[2017-09-10] MEDS: METOPROLOL SUCCINATE 50 MG TAB.SR.24H PO SCH (09:33)
[2017-09-10] MEDS ORDERED: ACETAMINOPHEN 325 MG TABLET PO PRN (11:33)
[2017-09-10] MEDS ORDERED: MAGNESIUM HYDROXIDE SUSP 30 ML UDCUP PO ONE (13:00)
--- NOTE | 2017-09-10 13:49 | PDOC PROGRESS REPORT ---
Subjective Progress Note for:: 09/10/17 Subjective:: JUAN MANCIA is a 67 year old male brought to the hospital for increasing right-sided weakness. 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 Patient has history of CVA and atrial fibrillation on Coumadin. Upon arrival to [facility], INR was subtherapeutic at 1.1. Patient is currently awaiting placement at acute rehab. The patient complains of constipation this morning, states he has not had a bowel movement in 4-5 days. Reason For Visit: CVA Physical Exam Vital Signs: Temp Pulse Resp BP Pulse Ox 98.0 F 96 17 121/83 94 09/10/17 11:32 09/10/17 11:32 09/10/17 11:32 09/10/17 11:32 09/10/17 11:32 Intake & Output 09/09/17 09/10/17 09/11/17 06:59 06:59 06:59 Intake Total 565 60 231 Output Total 550 200 Balance 15 -140 231 Weight 86.3 kg 88.5 kg General appearance: PRESENT: no acute distress Eye exam: PRESENT: conjunctiva pink Mouth exam: PRESENT: moist Respiratory exam: PRESENT: clear to auscultation stew, symmetrical, unlabored Cardiovascular exam: PRESENT: +S1, +S2 Pulses: PRESENT: normal radial pulses, +1 pedal pulses bilateral Vascular exam: PRESENT: normal capillary refill GI/Abdominal exam: PRESENT: normal bowel sounds, soft Rectal exam: PRESENT: deferred Extremities exam: PRESENT: other - 3/5 RUE RLE 5/5 LUE LLE Musculoskeletal exam: ABSENT: ambulatory Neurological exam: PRESENT: alert, awake, oriented to person, oriented to place , oriented to time, oriented to situation Psychiatric exam: PRESENT: appropriate affect Skin exam: PRESENT: normal color Results Laboratory Results: 09/06/17 06:28 09/06/17 06:28 09/05/17 09/05/17 09/05/17 14:24 14:24 20:27 Creatine Kinase 78 70 Troponin I 0.109 09/05/17 09/06/17 09/06/17 20:27 02:35 02:35 Creatine Kinase 58 Troponin I 0.092 0.104 Impressions: Chest X-Ray 09/05/17 00:00 IMPRESSION: Low lung volume. Brain MRI with MRA 09/05/17 09:40 IMPRESSION: Multiple acute small infarcts throughout the bilateral cerebral hemispheres and left cerebellum worrisome for embolic disease. These are nonhemorrhagic Old infarcts in the right frontoparietal convexity and bilateral cerebellar hemispheres No gross [place] stenosis EVIDENCE OF ACUTE STROKE: NO. Head MRI 09/05/17 09:40 IMPRESSION: Multiple acute small infarcts throughout the bilateral cerebral hemispheres and left cerebellum worrisome for embolic disease. These are nonhemorrhagic Old infarcts in the right frontoparietal convexity and bilateral cerebellar hemispheres No gross [place] stenosis EVIDENCE OF ACUTE STROKE: NO. Neck MRA 09/05/17 09:40 IMPRESSION: Motion artifact. 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 CVA likely secondary to subtherapeutic anticoagulation therapy. Patient has a history of atrial fibrillation on Coumadin. Initial INR 1.1. Discontinue Coumadin and Lovenox. Continue Xarelto. Echocardiogram done to assess for thrombus, no evidence of thrombus. 2011 carotid Doppler showed mild carotid artery stenosis, less than 50%. SBP goal less than 180. Continue home antihypertensives, Toprol-XL. As needed hydralazine for SBP greater than 180 MENDS exam Q SHIFT Given the debilitating nature of this second CVA, patient requires acute rehab following discharge from [facility]. Discharge planning assisting in placement. (2) A-fib Qualifiers: Atrial fibrillation type: chronic Qualified Code(s): I48.2 - Chronic atrial fibrillation Is this a current diagnosis for this admission?: Yes Plan: Currently rate controlled. Will continue anticoagulation therapy using Xarelto. (3) Hypertension Qualifiers: Hypertension type: essential hypertension Qualified Code(s): I10 - Essential (primary) hypertension Is this a current diagnosis for this admission?: Yes Plan: Continue home dose Toprol-XL. Patient's blood pressure has been adequately controlled for the last 24 hours. PRN hydralazine for SBP greater than 180 (4) Constipation Qualifiers: Constipation type: slow transit constipation Qualified Code(s): K59.01 - Slow transit constipation Is this a current diagnosis for this admission?: Yes Plan: The patient reports that he has not had a bowel movement in approximately 4-5 days. He states that he has anxiety about having to use a bedpan and going to the bathroom in the bed. Continue scheduled docusate and start scheduled milk of magnesia. - Time Time Spent with patient: 15-24 minutes Anticipated discharge: Home Within: within 48 hours - Inpatient Certification Based on my medical assessment, after consideration of the patient's comorbidities, presenting symptoms, or acuity I expect that the services needed warrant INPATIENT care.: Yes I certify that my determination is in accordance with my understanding of Medicare's requirements for reasonable and necessary INPATIENT services [42 CFR 412.3e].: Yes Medical Necessity: Risk of Complication if Not Cared For in Hospital - Plan Summary Plan Summary: The plan is to eventually discharge the patient to acute rehab. Currently, discharge planning is attempting to find a acute rehab facility that will accept the patient.
[2017-09-10] MEDS: RIVAROXABAN 10 MG TABLET PO SCH (16:15)
[2017-09-10] MEDS: ATORVASTATIN CALCIUM 40 MG TABLET PO SCH (21:05)
[2017-09-10] MEDS: ZOLPIDEM TARTRATE 5 MG TABLET PO SCH (21:06)
[2017-09-11] MEDS: LANSOPRAZOLE 30 MG TAB.RAP.DR PO SCH ×2 (05:34→16:50)
[2017-09-11] MEDS: DOCUSATE SODIUM 100 MG CAPSULE PO SCH ×2 (10:30→17:27)
[2017-09-11] MEDS: METOPROLOL SUCCINATE 50 MG TAB.SR.24H PO SCH (10:30)
[2017-09-11] MEDS: ASPIRIN 325 MG TABLET PO SCH (10:30)
[2017-09-11] MEDS: DUTASTERIDE 0.5 MG CAPSULE PO SCH (10:31)
[2017-09-11] MEDS: MAGNESIUM HYDROXIDE SUSP 30 ML UDCUP PO SCH (10:32)
[2017-09-11] MEDS: OXYCODONE-ACETAMINOPHEN 5-325 MG TABLET PO PRN (10:35)
[2017-09-11] MEDS ORDERED: SENNOSIDES/DOCUSATE 8.6-50 MG 1 EACH TABLET PO PRN (14:48)
[2017-09-11] MEDS ORDERED: LACTULOSE SYRUP 20 GM/30 ML UDCUP PO ONE (14:49)
--- NOTE | 2017-09-11 14:52 | PDOC PROGRESS REPORT ---
Subjective Progress Note for:: 09/11/17 Subjective:: JUAN MANCIA is a 67 year old male brought to the hospital for increasing right-sided weakness. 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 Patient has history of CVA and atrial fibrillation on Coumadin. Upon arrival to [facility], INR was subtherapeutic at 1.1. Patient is currently awaiting placement at acute rehab. Per nursing staff, the patient states "I want to . Everything you are doing to me is in vain. I just need to ." Will plan for family meeting today to discuss patient's wishes and mental status. Reason For Visit: CVA Physical Exam Vital Signs: Temp Pulse Resp BP Pulse Ox 98.5 F 99 20 118/79 93 09/11/17 11:49 09/11/17 11:49 09/11/17 11:49 09/11/17 11:49 09/11/17 11:49 Intake & Output 09/10/17 09/11/17 09/12/17 06:59 06:59 06:59 Intake Total 60 738 422 Output Total 200 375 Balance -140 363 422 Weight 88.5 kg 90.2 kg General appearance: PRESENT: no acute distress Head exam: PRESENT: atraumatic Eye exam: PRESENT: conjunctiva pink Mouth exam: PRESENT: moist Teeth exam: PRESENT: poor dentation Neck exam: PRESENT: full ROM Respiratory exam: PRESENT: clear to auscultation stew, symmetrical, unlabored Pulses: PRESENT: normal radial pulses, normal dorsalis pedis pul GI/Abdominal exam: PRESENT: distended - no bowel movment x 6 days, normal bowel sounds Rectal exam: PRESENT: deferred Extremities exam: PRESENT: other - 3/5 RUE RLE 5/5 LUE LLE Musculoskeletal exam: ABSENT: ambulatory Neurological exam: PRESENT: alert, awake, oriented to person, oriented to place , oriented to time, oriented to situation Psychiatric exam: PRESENT: other - Today, the patient told the nursing staff "I want to " Results Laboratory Results: 09/06/17 06:28 09/06/17 06:28 09/05/17 09/05/17 09/05/17 14:24 14:24 20:27 Creatine Kinase 78 70 Troponin I 0.109 09/05/17 09/06/1718 20:27 02:35 02:35 Creatine Kinase 58 Troponin I 0.092 0.104 Impressions: Chest X-Ray 09/05/17 00:00 IMPRESSION: Low lung volume. Brain MRI with MRA 09/05/17 09:40 IMPRESSION: Multiple acute small infarcts throughout the bilateral cerebral hemispheres and left cerebellum worrisome for embolic disease. These are nonhemorrhagic Old infarcts in the right frontoparietal convexity and bilateral cerebellar hemispheres No gross [place] stenosis EVIDENCE OF ACUTE STROKE: NO. Head MRI 09/05/17 09:40 IMPRESSION: Multiple acute small infarcts throughout the bilateral cerebral hemispheres and left cerebellum worrisome for embolic disease. These are nonhemorrhagic Old infarcts in the right frontoparietal convexity and bilateral cerebellar hemispheres No gross [place] stenosis EVIDENCE OF ACUTE STROKE: NO. Neck MRA 09/05/17 09:40 IMPRESSION: Motion artifact. 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 CVA likely secondary to subtherapeutic anticoagulation therapy. Patient has a history of atrial fibrillation on Coumadin. Initial INR 1.1. Discontinue Coumadin and Lovenox. Continue Xarelto. Echocardiogram done to assess for thrombus, no evidence of thrombus. 2011 carotid Doppler showed mild carotid artery stenosis, less than 50%. SBP goal less than 180. Continue home antihypertensives, Toprol-XL. As needed hydralazine for SBP greater than 180 MENDS exam Q SHIFT Given the debilitating nature of this second CVA, patient requires acute rehab following discharge from [facility]. Discharge planning assisting in placement. (2) A-fib Qualifiers: Atrial fibrillation type: chronic Qualified Code(s): I48.2 - Chronic atrial fibrillation Is this a current diagnosis for this admission?: Yes Plan: Currently rate controlled. Will continue anticoagulation therapy using Xarelto. (3) Hypertension Qualifiers: Hypertension type: essential hypertension Qualified Code(s): I10 - Essential (primary) hypertension Is this a current diagnosis for this admission?: Yes Plan: Continue home dose Toprol-XL. Patient's blood pressure has been adequately controlled for the last 24 hours. PRN hydralazine for SBP greater than 180 (4) Constipation Qualifiers: Constipation type: slow transit constipation Qualified Code(s): K59.01 - Slow transit constipation Is this a current diagnosis for this admission?: Yes Plan: The patient reports that he has not had a bowel movement in approximately 4-5 days. He states that he has anxiety about having to use a bedpan and going to the bathroom in the bed. Continue scheduled docusate and scheduled milk of magnesia. Start senna and lactulose today. - Time Time Spent with patient: 15-24 minutes Anticipated discharge: Acute Rehab Within: within 72 hours - Inpatient Certification Based on my medical assessment, after consideration of the patient's comorbidities, presenting symptoms, or acuity I expect that the services needed warrant INPATIENT care.: Yes I certify that my determination is in accordance with my understanding of Medicare's requirements for reasonable and necessary INPATIENT services [42 CFR 412.3e].: Yes Medical Necessity: Risk of Complication if Not Cared For in Hospital - Plan Summary Plan Summary: The plan is to discharge the patient to acute rehab
[2017-09-11] MEDS: RIVAROXABAN 10 MG TABLET PO SCH (16:49)
[2017-09-11] MEDS: ZOLPIDEM TARTRATE 5 MG TABLET PO SCH (21:13)
[2017-09-11] MEDS: ATORVASTATIN CALCIUM 40 MG TABLET PO SCH (21:13)
[2017-09-12] MEDS: LANSOPRAZOLE 30 MG TAB.RAP.DR PO SCH ×2 (06:18→18:22)
[2017-09-12] MEDS ORDERED: LACTULOSE SYRUP 20 GM/30 ML UDCUP PO PRN (09:10)
[2017-09-12] MEDS ORDERED: BISACODYL 5 MG TABEC PO PRN (09:11)
[2017-09-12] MEDS: DUTASTERIDE 0.5 MG CAPSULE PO SCH (09:28)
[2017-09-12] MEDS: ASPIRIN 325 MG TABLET PO SCH (09:28)
[2017-09-12] MEDS: DOCUSATE SODIUM 100 MG CAPSULE PO SCH ×2 (09:29→18:23)
[2017-09-12] MEDS: METOPROLOL SUCCINATE 50 MG TAB.SR.24H PO SCH (09:29)
[2017-09-12] MEDS: MAGNESIUM HYDROXIDE SUSP 30 ML UDCUP PO SCH (09:30)
--- NOTE | 2017-09-12 10:15 | PDOC PROGRESS REPORT ---
Subjective Progress Note for:: 09/12/17 Subjective:: JUAN MANCIA is a 67 year old male brought to the hospital for increasing right-sided weakness. 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 Patient has history of CVA and atrial fibrillation on Coumadin. Upon arrival to [facility], INR was subtherapeutic at 1.1. Patient is currently awaiting placement at acute rehab. He complains of constipation, stating that he has not had a bowel movement in 7 days. The patient denies abdominal pain and bloating. Reason For Visit: CVA Physical Exam Vital Signs: Temp Pulse Resp BP Pulse Ox 98.5 F 77 18 119/83 94 09/12/17 07:30 09/12/17 07:30 09/12/17 07:30 09/12/17 07:30 09/12/17 07:30 Intake & Output 09/11/17 09/12/17 09/13/17 06:59 06:59 06:59 Intake Total 738 1117 Output Total 375 425 Balance 363 692 Weight 90.2 kg 92.6 kg General appearance: PRESENT: no acute distress Head exam: PRESENT: atraumatic Eye exam: PRESENT: conjunctiva pink Mouth exam: PRESENT: moist Teeth exam: PRESENT: poor dentation Neck exam: PRESENT: full ROM Respiratory exam: PRESENT: symmetrical, unlabored Cardiovascular exam: PRESENT: +S1, +S2 Pulses: PRESENT: normal femoral pulses, normal dorsalis pedis pul Vascular exam: PRESENT: normal capillary refill GI/Abdominal exam: PRESENT: distended, normal bowel sounds, soft Rectal exam: PRESENT: deferred Extremities exam: PRESENT: other - 3/5 RUE RLE 5/5 LUE LLE Musculoskeletal exam: PRESENT: full ROM - 3/5 RUE RLE 5/5 LUE LLE Neurological exam: PRESENT: alert, awake, oriented to person, oriented to place , oriented to time, oriented to situation Psychiatric exam: PRESENT: appropriate affect Skin exam: PRESENT: normal color Results Laboratory Results: 09/06/17 06:28 09/06/17 06:28 09/05/17 09/05/17 09/05/17 14:24 14:24 20:27 Creatine Kinase 78 70 Troponin I 0.109 09/05/17 09/06/17 09/06/17 20:27 02:35 02:35 Creatine Kinase 58 Troponin I 0.092 0.104 Impressions: Chest X-Ray 09/05/17 00:00 IMPRESSION: Low lung volume. Brain MRI with MRA 09/05/17 09:40 IMPRESSION: Multiple acute small infarcts throughout the bilateral cerebral hemispheres and left cerebellum worrisome for embolic disease. These are nonhemorrhagic Old infarcts in the right frontoparietal convexity and bilateral cerebellar hemispheres No gross [place] stenosis EVIDENCE OF ACUTE STROKE: NO. Head MRI 09/05/17 09:40 IMPRESSION: Multiple acute small infarcts throughout the bilateral cerebral hemispheres and left cerebellum worrisome for embolic disease. These are nonhemorrhagic Old infarcts in the right frontoparietal convexity and bilateral cerebellar hemispheres No gross [place] stenosis EVIDENCE OF ACUTE STROKE: NO. Neck MRA 09/05/17 09:40 IMPRESSION: Motion artifact. 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 CVA likely secondary to subtherapeutic anticoagulation therapy. Patient has a history of atrial fibrillation on Coumadin. Initial INR 1.1. Discontinue Coumadin and Lovenox. Continue Xarelto. Echocardiogram done to assess for thrombus, no evidence of thrombus. 2011 carotid Doppler showed mild carotid artery stenosis, less than 50%. SBP goal less than 180. Continue home antihypertensives, Toprol-XL. As needed hydralazine for SBP greater than 180 MENDS exam Q SHIFT Given the debilitating nature of this second CVA, patient requires acute rehab following discharge from [facility]. Discharge planning assisting in placement. (2) A-fib Qualifiers: Atrial fibrillation type: chronic Qualified Code(s): I48.2 - Chronic atrial fibrillation Is this a current diagnosis for this admission?: Yes Plan: Currently rate controlled. Will continue anticoagulation therapy using Xarelto. (3) Hypertension Qualifiers: Hypertension type: essential hypertension Qualified Code(s): I10 - Essential (primary) hypertension Is this a current diagnosis for this admission?: Yes Plan: Continue home dose Toprol-XL. Patient's blood pressure has been adequately controlled for the last 24 hours. PRN hydralazine for SBP greater than 180 (4) Constipation Qualifiers: Constipation type: slow transit constipation Qualified Code(s): K59.01 - Slow transit constipation Is this a current diagnosis for this admission?: Yes Plan: The patient reports that he has not had a bowel movement in approximately 7 days. He states that he has anxiety about having to use a bedpan and going to the bathroom in the bed. Continue scheduled docusate, scheduled milk of magnesia, senna and initiate lactulose and dulcolax today. If patient does not have a BM within 24 hrs, consider enema. - Time Time Spent with patient: 15-24 minutes Anticipated discharge: Acute Rehab Within: within 48 hours - Inpatient Certification Based on my medical assessment, after consideration of the patient's comorbidities, presenting symptoms, or acuity I expect that the services needed warrant INPATIENT care.: Yes I certify that my determination is in accordance with my understanding of Medicare's requirements for reasonable and necessary INPATIENT services [42 CFR 412.3e].: Yes Medical Necessity: Risk of Complication if Not Cared For in Hospital - Plan Summary Plan Summary: Plan to discharge from [facility] to acute rehab
[2017-09-12] MEDS: RIVAROXABAN 10 MG TABLET PO SCH (18:23)
[2017-09-12] MEDS: ATORVASTATIN CALCIUM 40 MG TABLET PO SCH (21:41)
[2017-09-13] MEDS: LANSOPRAZOLE 30 MG TAB.RAP.DR PO SCH (05:16)
[2017-09-13] MEDS: DUTASTERIDE 0.5 MG CAPSULE PO SCH (10:35)
[2017-09-13] MEDS: DOCUSATE SODIUM 100 MG CAPSULE PO SCH (10:35)
[2017-09-13] MEDS: ASPIRIN 325 MG TABLET PO SCH (10:35)
[2017-09-13] MEDS: MAGNESIUM HYDROXIDE SUSP 30 ML UDCUP PO SCH (10:35)
[2017-09-13] MEDS: METOPROLOL SUCCINATE 50 MG TAB.SR.24H PO SCH (10:36)
--- NOTE | 2017-09-13 10:36 | PDOC TRANSFER SUMMARY ---
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 CVA likely secondary to subtherapeutic anticoagulation therapy. The patient has a history of atrial fibrillation on Coumadin. Initial INR 1.1. Discontinued Coumadin and Lovenox. Initiated Xarelto for anticoagulation therapy. Echocardiogram was completed, no evidence of thrombus. 2011 carotid Doppler showed mild carotid artery stenosis, less than 50%. Continue home antihypertensives, Toprol-XL, to maintain SBP less than 180. Given the debilitating nature of the second CVA, the patient will require acute rehab following discharge from [facility]. (2) A-fib Is this a current diagnosis for this admission?: Yes Diagnosis Summary: The patient has a history of AFIB. Currently rate controlled. Continue anticoagulation therapy using Xarelto post discharge. (3) Hypertension Is this a current diagnosis for this admission?: Yes Diagnosis Summary: The patient has history of high blood pressure. It has been controlled with Toprol XL. Will continue post discharge. (4) Constipation Is this a current diagnosis for this admission?: Yes Diagnosis Summary: No bowel movement for 7 days. The patient has been taking docusate, senna, milk of magnesia, Dulcolax, lactulose. Today 09/13/2017 the patient finally had a bowel movement. - Transfer Medications Home Medications: Dutasteride [Avodart Lf 0.5 mg Capsule] 0.5 mg PO DAILY 09/05/17 Simvastatin [Zocor 40 mg Tablet] 40 mg PO QHS 09/05/17 Tamsulosin HCl [Flomax 0.4 mg Cap.sr] 0.8 mg PO DAILY 09/05/17 Transfer Medications: Current Medications Acetaminophen (Tylenol 325 Mg Tablet) 650 mg PO Q4HP PRN PRN Reason: FOR PAIN Stop: 10/10/17 11:32 Albuterol/Ipratropium (Duoneb 3 Ml Ampul) 3 ml NEB RTQ6HP PRN PRN Reason: SHORTNESS OF BREATH Stop: 10/05/17 10:48 Aspirin (Aspirin 325 Mg Tablet) 325 mg PO DAILY FOR[facility], [facility]1983 Stop: 10/06/17 09:59 Last Admin: 09/12/17 09:28 Dose: 325 mg Atorvastatin Calcium (Lipitor 40 Mg Tablet) 40 mg PO QHS [facility], [facility]1983 Stop: 10/05/17 21:59 Last Admin: 09/12/17 21:41 Dose: 40 mg Bisacodyl (Dulcolax 5 Mg Tablet) 5 mg PO DAILYP PRN PRN Reason: UNRESOLVED CONSTIPATION Stop: 10/12/17 09:10 Last Admin: 09/12/17 09:28 Dose: 5 mg Docusate Sodium (Colace 100 Mg Capsule) 100 mg PO BID [facility], [facility]1983 Stop: 10/05/17 17:59 Last Admin: 09/12/17 18:23 Dose: 100 mg Dutasteride (Avodart Lf 0.5 Mg Capsule) 0.5 mg PO DAILY [facility], [facility]1983 Stop: 10/05/17 09:59 Last Admin: 09/12/17 09:28 Dose: 0.5 mg Hydralazine HCl (Apresoline Inj/Pf 20 Mg/1 Ml Sdv) 10 mg IV Q6HP PRN PRN Reason: GIVE FOR SBP > [] Stop: 10/05/17 10:55 Influenza Virus Vaccine Quadrival (Fluzone Adlt Quad [id number] Vac 0.5 Ml Syr) 0.5 ml IM .DISCHARGE PRN PRN Reason: THIS MED IS NOT "PRN" Stop: 10/05/17 18:27 Lactulose (Cephulac Syrup 20 Gm/30 Ml Udcup) 20 gm PO Q8HP PRN PRN Reason: UNRESOLVED CONSTIPATION Stop: 10/12/17 09:09 Lansoprazole (Prevacid 30 Mg Odt Tablet) 30 mg PO BID@0600,1700 [facility], [facility] Stop: 10/05/17 16:59 Last Admin: 09/13/17 05:16 Dose: 30 mg Magnesium Hydroxide (Milk Of Magnesia 30 Ml Udcup) 30 ml PO DAILY [facility] Stop: 10/11/17 09:59 Last Admin: 09/12/17 09:30 Dose: 30 ml Metoprolol Succinate (Toprol Xl 50 Mg Tab.Sr) 50 mg PO DAILY [facility], [facility]1983 Stop: 10/12/17 09:59 Last Admin: 09/12/17 09:29 Dose: 50 mg Ondansetron HCl (Zofran Inj/Pf 4 Mg/2 Ml Sdv) 4 mg IV Q6HP PRN PRN Reason: FOR NAUSEA/VOMITING Stop: 10/05/17 10:48 Oxycodone/Acetaminophen (Percocet 5-325 Mg Tablet) 1 tab PO Q6HP PRN PRN Reason: FOR BACK PAIN Stop: 10/05/17 10:48 Last Admin: 09/11/17 10:35 Dose: 1 tab Promethazine HCl (Phenergan Inj 25 Mg/1 Ml Vial) 12.5 mg IV Q4HP PRN PRN Reason: FOR NAUSEA/VOMITING Stop: 10/05/17 10:48 Rivaroxaban (Xarelto 10 Mg Tablet) 20 mg PO WSUPPER [facility], [facility]1983 Stop: 10/07/17 16:59 Last Admin: 09/12/17 18:23 Dose: 20 mg Senna/Docusate Sodium (Senna Plus Tablet) 1 each PO BIDP PRN PRN Reason: UNRESOLVED CONSTIPATION Stop: 10/11/17 14:47 Tamsulosin HCl (Flomax 0.4 Mg Cap.Sr) 0.8 mg PO NOW [facility], [facility] Stop: 10/05/17 11:59 - Allergies Allergies/Adverse Reactions: No Known Allergies Allergy (Verified 07/02/17 11:12) - Diet/Activity Discharge Diet: Cardiac Discharge Activity: Activity As Tolerated Hospital Course Hospital Course: The patient was admitted for [facility] for increasing right-sided weakness. 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 Upon arrival to [facility], INR was subtherapeutic at 1.1. It was reported that the patient lives at home with 1 of his children, whom he depends on for his medications and ADLs. It is unclear if the family member was administering the medication as directed. As a result of poor Coumadin compliance, the patient was started on Xarelto. Physical therapy has been working with the patient, however he requires significant assistance to get out of bed. The patient frequently complained of constipation, he was unable to have a bowel movement for approximately 7 days. He never complained of abdominal pain or distention. His bowel regimen was maximized with docusate, senna, Dulcolax, milk of magnesia , lactulose. This morning, the patient finally had a bowel movement. Family meeting 04/14/2018 -the patient's adult children live in [facility]. They are amendable to the idea of the patient going to acute rehab locally in [place], but want to transfer the patient to [place] once his stay at acute rehab is complete. Physical Exam Vital Signs: Temp Pulse Resp BP Pulse Ox 97.8 F 82 16 141/75 H 99 09/13/17 07:45 09/13/17 07:45 09/13/17 07:45 09/13/17 07:45 09/13/17 07:45 Intake & Output 09/12/17 09/13/17 09/14/17 06:59 06:59 06:59 Intake Total 1117 640 Output Total 425 350 Balance 692 290 Weight 92.6 kg 91.9 kg General appearance: PRESENT: no acute distress Head exam: PRESENT: atraumatic Eye exam: PRESENT: conjunctiva pink Mouth exam: PRESENT: moist Teeth exam: PRESENT: poor dentation Neck exam: PRESENT: full ROM Respiratory exam: PRESENT: clear to auscultation stew, symmetrical, unlabored Cardiovascular exam: PRESENT: +S1, +S2 Pulses: PRESENT: normal radial pulses, normal dorsalis pedis pul Vascular exam: PRESENT: normal capillary refill GI/Abdominal exam: PRESENT: normal bowel sounds, soft Rectal exam: PRESENT: deferred Extremities exam: PRESENT: other - 3/5 strength in RUE RLE 5/5 strength in LUE LLE. ABSENT: full ROM Musculoskeletal exam: PRESENT: other - 3/5 strength in RUE RLE 5/5 strength in LUE LLE. ABSENT: full ROM Neurological exam: PRESENT: alert, awake, oriented to person, oriented to place , oriented to time, oriented to situation Psychiatric exam: PRESENT: appropriate affect Skin exam: PRESENT: normal color Results Laboratory Results: 09/06/17 06:28 09/06/17 06:28 09/05/17 09/05/17 09/05/17 14:24 14:24 20:27 Creatine Kinase 78 70 Troponin I 0.109 09/05/17 09/06/17 09/06/17 20:27 02:35 02:35 Creatine Kinase 58 Troponin I 0.092 0.104 Impressions: Chest X-Ray 09/05/17 00:00 IMPRESSION: Low lung volume. Brain MRI with MRA 09/05/17 09:40 IMPRESSION: Multiple acute small infarcts throughout the bilateral cerebral hemispheres and left cerebellum worrisome for embolic disease. These are nonhemorrhagic Old infarcts in the right frontoparietal convexity and bilateral cerebellar hemispheres No gross [place] of Canseco stenosis EVIDENCE OF ACUTE STROKE: NO. Head MRI 09/05/17 09:40 IMPRESSION: Multiple acute small infarcts throughout the bilateral cerebral hemispheres and left cerebellum worrisome for embolic disease. These are nonhemorrhagic Old infarcts in the right frontoparietal convexity and bilateral cerebellar hemispheres No gross [place] of Canseco stenosis EVIDENCE OF ACUTE STROKE: NO. Neck MRA 09/05/17 09:40 IMPRESSION: Motion artifact. No vertebral artery or cervical carotid artery gross evidence of stenosis Status: Imported from PACS Plan Discharge Plan: Transfer to acute rehab Time Spent: Less than 30 Minutes
[2017-09-13 12:24] VITALS: BP 101/73
== END 2017-09-13 14:18 | DRG 65 ==
LOC: ER 05:29 → EH 09:53 → 3S 17:13
PROVIDERS: ADMIT Family Medicine; ATTEND Family Medicine
PROC: 3E0F73Z Introduction of Anti-inflammatory into Respiratory Tract, Via Natural or Artificial Opening (ICD-10-PCS; principal; 2017-09-05)
DX: I63.9 Cerebral infarction, unspecified (principal); I69.351 Hemiplegia and hemiparesis following cerebral infarction affecting right dominant side; I48.2 Chronic atrial fibrillation; I10 Essential (primary) hypertension; K59.01 Slow transit constipation; E78.5 Hyperlipidemia, unspecified; N40.0 Benign prostatic hyperplasia without lower urinary tract symptoms; R79.1 Abnormal coagulation profile; Z87.891 Personal history of nicotine dependence; Z79.01 Long term (current) use of anticoagulants; Z99.3 Dependence on wheelchair; Z79.899 Other long term (current) drug therapy
CPT/HCPCS: 36415; 70450; 70544; 70547; 70553; 71045; 80053; 80061; 81001; 82140; 82550; 83036; 83735; 83880; 84100; 84439; 84443; 84481; 84484; 85025; 85027; 85610; 85730; 93005; 93010; 93306; 96360; 99285; A9577; G8978-GP; G8979-GP; G8987-GO; G8988-GO; G8996-GN; G8997-GN; G8998-GN; J1650; J3490; J7030